=== PATIENT | male | born 1945 | race Caucasian/White ===

== ENCOUNTER → 2017-10-15 12:30 | Outpatient (CLI) | payer MEDICARE, OTHER, SELFPAY ==
[2017-10-15 13:54] LABS: Absolute Lymphocyte Count 1.17 X10^3/ul (0.83-4.51); Absolute Neutrophil Count 4.1 X10^3/uL (2.0-7.7); Basophil# 0.03 X10^3/uL; Basophil% 0.5 % (0-1); Eosinophil# 0.25 X10^3/uL; Eosinophils% 4.2 % (0-5); Hematocrit 43.9 % (40-54); Hemoglobin 14.6 g/dl (13.0-16.5); Lymphocyte # 1.17 X10^3/ul (4.0); Lymphocyte % 19.7 % (19-41); Mean Corp Hgb Conc 33.3 g/gl (32-36); Mean Corpuscular Hgb 28.5 pg (27.0-32.0); Mean Corpuscular Volume 85.6 fL (80-94); Mean Platelet Vol. 9.8 fl (6.2-12.0); Monocyte# 0.38 X10^3/uL; Monocyte% 6.4 % (0-10); Neutrophil # 4.09 X10^3/uL (2.7-7.7); POSITIVE COUNT NO; POSITIVE DIFFERENTIAL NO; POSITIVE MORPHOLOGY NO; Platelet Count 218 K/mm3 (150-450); RBC Distribution Width CV 12.8 % (11.6-14.6); Red Blood Count 5.13 M/mm3 (4.6-6.2); White Blood Count 5.9 K/mm3 (4.4-11.0)
[2017-10-15 14:10] LABS: BNP,B-Type NATRIURETIC PEPTIDE 28.6 pg/mL (0-100)
[2017-10-15 14:12] LABS: AST(SGOT) 19 U/L (15-37); Alanine Aminotransfer ALT/SGPT 28 U/L (16-61); Alkaline Phosphatase 142 U/L (45-117); Anion Gap 10 (5-15); BUN 18 mg/dL (7-18); BUN/Creat Ratio 18.3 RATIO (10-20); Calcium,Total 8.9 mg/dL (8.5-10.1); Chloride 104 mmol/L (98-107); Creatinine, Serum 0.98 mg/dL (0.70-1.30); EST Glomerular Filtration Rate 79 mL/min (>60); Est Glom Filt Rate - Afr Amer 96 mL/min (>60); Globulin 3.9 g/dL (2.2-4.2); Glucose 95 mg/dL (74-106); Potassium 3.7 mmol/L (3.5-5.1); Protein, Total 7.9 g/dL (6.4-8.2); Sodium Level 141 mmol/L (136-145); Thyroid Stim Hormone (TSH) 2.55 uIU/mL (0.358-3.74)
== END ==
PROVIDERS: Family Provider Family Medicine; PCP Family Medicine; Visit Provider Family Medicine
DX: R60.0 Localized edema (principal)
CPT/HCPCS: 36415; 80053; 83880; 84443; 85025

== ENCOUNTER → 2017-10-25 17:16 | Outpatient (CLI) | payer MEDICARE, OTHER, SELFPAY ==
--- NOTE | 2017-10-25 17:20 | CT_ITS ---
STUDY: CT MAXILLOFACIAL SINUSES REASON FOR EXAM: Male, 72 years old. Sinusitis, lump on middle of forehead RADIATION DOSAGE (If Supplied By Facility): CTDIvol = ( 33.06 ) mGy, DLP = ( 895.83 ) mGycm TECHNIQUE: The patient was scanned in a multi detector CT scanner. High resolution axial imaging was performed without the administration of intravenous contrast material. Sagittal and coronal images were reconstructed. Individualized dose optimization techniques were used for this CT. COMPARISON: None. FINDINGS: FRONTAL SINUSES: Bilateral mucosal thickening, left more than right. ETHMOIDAL SINUSES: Diffuse bilateral mucosal thickening. MAXILLARY SINUSES: Bilateral mucosal thickening. SPHENOIDAL SINUSES: Mild mucosal thickening. There is patency of the bilateral maxillary infundibuli with normal uncinate processes, ethmoid bullae, and hiatus semilunaris. Normal bilateral middle turbinates. Normal bilateral inferior turbinates. Normal midline nasal septum. There is patency of the bilateral nasal airways. The visualized osseous structures are normal. The visualized bilateral orbital contents are normal. There is a 9 mm calcified subcutaneous nodule at the midforehead. CT/Sinus/Facial Bone IMPRESSION: Chronic pansinusitis with diffuse mucosal thickening of the paranasal sinuses. Electronically Signed: Dar Tobin DO at 23:35 EDT Tel [phone], Service support ,
== END ==
PROVIDERS: Family Provider Family Medicine; PCP Family Medicine; Visit Provider Otolaryngology
DX: J32.9 Chronic sinusitis, unspecified (principal)
CPT/HCPCS: 70486

== ENCOUNTER → 2017-11-06 08:09 | Outpatient (CLI) | payer MEDICARE, OTHER, SELFPAY ==
[2017-11-06 10:49] LABS: AST(SGOT) 15 U/L (15-37); Alanine Aminotransfer ALT/SGPT 30 U/L (16-61); Albumin, Serum 3.7 g/dL (3.2-5.0); Alkaline Phosphatase 136 U/L (45-117); Bilirubin, Direct 0.23 mg/dL (0.00-0.30); Cholesterol 130 mg/dL (200); Globulin 3.8 g/dL (2.2-4.2); High Density Lipoprotein 38 mg/dL; Protein, Total 7.5 g/dL (6.4-8.2); Triglycerides 153 mg/dL; Very Low Density Lipoprotein 31 mg/dL (5-40)
== END ==
PROVIDERS: Family Provider Family Medicine; PCP Family Medicine; Visit Provider Internal Medicine Cardiovascular Disease
DX: E78.5 Hyperlipidemia, unspecified (principal)
CPT/HCPCS: 36415; 80061; 80076

== ENCOUNTER → 2017-11-07 09:10 | Outpatient (CLI) | payer MEDICARE, OTHER, SELFPAY ==
--- NOTE | 2017-11-07 09:14 | ECHOD_ITS ---
Reason For Study: Pedal Edema Procedure This was a 2D Doppler, Color Flow transthoracic echocardiogram. The exam was of fair technical quality due to body habitus. The study was technically difficult. Exam performed in department. Left Ventricle Normal LV size. Left ventricular systolic function is normal. The estimated ejection fraction is 70 %. There is evidence of diastolic dysfunction. No regional wall motion abnormalities noted. Right Ventricle Normal RV size. Normal systolic function. Atria The left atrium is mildly enlarged. Normal right atrium. No doppler evidence for ASD. Mitral Valve There is no mitral annular calcification. Mobile ecodensity in the submitral valvular apparatus appearing c/w redundant chordae tendonae. Mild (1+) eccentric mitral valve insufficiency. Tricuspid Valve Normal tricuspid valve. Mild tricuspid valve insufficiency. Right ventricular systolic pressure estimated to be 41 mmHg. Aortic Valve Trisinus/trileaflet aortic valve. Normal aortic valve. Pulmonic Valve The pulmonic valve is not well visualized. Great Vessels Normal sized aortic root. Pericardium/Pleural No pericardial effusion. MMode/2D Measurements & Calculations LVIDd: 5.4 cm IVSd: 0.76 cm Ao root diam: 3.9 cm LVIDs: 3.4 cm LVPWd: 0.89 cm LA dimension: 4.1 cm RVDd: 3.9 cm FS: 37.6 % LAV(MOD-bp): 70.2 ml LA A4 area: 21.9 cm2 RA A4 area: 18.0 cm2 LAV(MOD-bp) Indexed: 30.6 ml/m2 LAV(MOD-sp2): 74.4 ml LAV(MOD-sp4): 64.6 ml Time Measurements MV dec time: 0.34 sec Doppler Measurements & Calculations MV E max red: 65.6 cm/sec Lat Peak E' Red: 12.0 cm/sec Med Peak E' Red: 6.2 cm/sec MV A max red: 71.3 cm/sec E/E' lat: 5.4 E/E' med: 10.5 MV E/A: 0.92 MV V2 max: 88.6 cm/sec MV P1/2t max red: 79.0 cm/sec Ao V2 max: 140.7 cm/sec MV max P.1 mmHg MV P1/2t: 79.3 msec Ao max P.9 mmHg MV V2 mean: 46.1 cm/sec MV dec slope: 291.8 cm/sec2 Ao V2 mean: 86.3 cm/sec MV mean P.0 mmHg MVA(P1/2t): 2.8 cm2 Ao mean P.5 mmHg MV V2 VTI: 30.1 cm Ao V2 VTI: 28.5 cm LV V1 max: 121.0 cm/sec PA V2 max: 125.2 cm/sec TR max red: 309.7 cm/sec LV V1 max P.9 mmHg TR max P.4 mmHg LV V1 mean P.8 mmHg LV V1 mean: 76.4 cm/sec LV V1 VTI: 27.6 cm Interpretation Summary The study was technically difficult. Left ventricular systolic function is normal. The estimated ejection fraction is 70 %. The left atrium is mildly enlarged. Mobile ecodensity in the submitral valvular apparatus appearing c/w redundant chordae tendonae. Mild (1+) eccentric mitral valve insufficiency. Mild tricuspid valve insufficiency. Right ventricular systolic pressure estimated to be 41 mmHg. There is evidence of diastolic dysfunction. Ordering Physician: Carolina Mendez Referring Physician: Carolina Mendez Performed By: Zacarias Ospina RCS
== END ==
PROVIDERS: Family Provider Family Medicine; PCP Family Medicine; Visit Provider Family Medicine
DX: I25.10 Atherosclerotic heart disease of native coronary artery without angina pectoris (principal); R60.0 Localized edema
CPT/HCPCS: 93306

== ENCOUNTER 2017-11-19 11:32 | Day surgery (SDC) | payer MEDICARE, OTHER, SELFPAY ==
[2017-11-13 14:07] VITALS: BP 128/74; PULSE 67; RESP 16; TEMP 36.4; O2SAT 96; BMI 32.0
--- NOTE | 2017-11-13 14:31 | SDCEKG_ITS ---
Test Reason : Blood Pressure : / mmHG Vent. Rate : 062 BPM Atrial Rate : 062 BPM P-R Int : 192 ms QRS Dur : 104 ms QT Int : 430 ms P-R-T Axes : 028 -19 011 degrees QTc Int : 436 ms Normal sinus rhythm Normal ECG Confirmed by MARCELINO BEATTY, GALINDO ([id number]), book editor KENROY GALE ([id number]) on 11/15/2017 1:49:01 PM Referred By: Partha Xie Confirmed By:GALINDO BENSON MD
[2017-11-13 15:26] LABS: Anion Gap 7 (5-15); BUN 21 mg/dL (7-18); BUN/Creat Ratio 18.8 RATIO (10-20); Calcium,Total 9.2 mg/dL (8.5-10.1); Chloride 104 mmol/L (98-107); Creatinine, Serum 1.12 mg/dL (0.70-1.30); EST Glomerular Filtration Rate 68 mL/min (>60); Est Glom Filt Rate - Afr Amer 83 mL/min (>60); Estimated Creatinine Clearance 64.47 ml/min; Glucose 111 mg/dL (74-106); Potassium 3.8 mmol/L (3.5-5.1); Sodium Level 138 mmol/L (136-145)
[2017-11-19 11:54] VITALS: BP 132/70; RESP 16; TEMP 36.2; O2SAT 96; BMI 31.9
--- NOTE | 2017-11-19 12:47 | PCM.DC ---
You will use the following diet at home:: No restrictions Your food should be the consistency of: Regular Discharge Activity: Return to Normal Activity Call your doctor if your incision/area has: Increased Pain/ Swelling Allergies/Adverse Reactions: Allergies nifedipine Adverse Reaction (Severe, Verified 11/13/17 13:56) SOB,Dizziness,CP diazepam [From Valium] Adverse Reaction (Verified 11/13/17 13:56) Nausea Medications to take at Discharge Aspirin 325 mg PO DAILY 07/12/16 Atenolol [Tenormin] 25 mg PO BID 07/12/16 Clopidogrel Bisulfate [Plavix] 75 mg PO DAILY 07/12/16 Omeprazole [Prilosec] 40 mg PO DAILY 07/12/16 Tamsulosin HCl [Flomax] 0.4 mg PO DAILY 07/12/16 albuterol sulfate HFA 90 mcg/actuation aerosol inhaler 2 puff INHALATION Q6H PRN 11/04/17 finasteride 5 mg tablet 5 mg PO QDAY 11/04/17 fluticasone 50 mcg/actuation nasal spray,suspension 2 spray INTRANASAL QDAY 11/04/17 multivitamin tablet 1 tab PO QAM 11/04/17 nitroglycerin 0.4 mg sublingual tablet 0.4 mg SUBLINGUAL Q5-15M PRN 11/04/17 fluticasone furoate 100 mcg/actuation blister powder for inhalation 1 inh INHALATION QDAY 11/07/17 Albuterol Aerosols [Ventolin Aerosols] 2.5 mg INHALATION Q6HWA.RT 11/13/17 Amlodipine [Norvasc] 10 mg PO DAILY 11/13/17 Atorvastatin Calcium [Lipitor] 40 mg PO QHS 11/13/17 Furosemide 40 mg PO QDAY 11/13/17 Lisinopril [Zestril] 20 mg PO BID 11/13/17 Triamterene 37.5MG/Hctz 25MG [Maxzide 37.5 mg-25 mg Tablet] 0.5 tab PO QDAY 11/13/17 potassium chloride ER 10 mEq tablet,extended release(part/cryst) 20 meq PO QDAY #180 tab 11/15/17 Acetaminophen/Codeine #3 [Tylenol#3] 1 tab PO Q6H PRN PRN 3 Days #10 tab 11/19/17 Cephalexin [Keflex] 500 mg PO BID #8 cap 11/19/17 The following prescriptions were given: Acetaminophen/Codeine #3 [Tylenol#3] 1 tab PO Q6H PRN PRN 3 Days #10 tab PRN Reason: Pain Cephalexin [Keflex] 500 mg PO BID #8 cap Primary Care Physician: Carolina Mendez MD [Primary Care Provider] - Please Follow Up With: Partha Xie MD When: 1 week
--- NOTE | 2017-11-19 12:48 | PCM.OPRPT ---
Problem List (1) Osteoma of skull Status: Chronic Report of Operation Date of Procedure: 11/19/17 Pre-Operative Diagnosis: frontal osteoma, facial pain Post-Operative Diagnosis: frontal osteoma, facial pain Surgery/Procedure Performed:: excision frontal osteoma Type of Anesthesia:: General Description of Procedure: on the day of the procedure, after appropriate informed consent was obtained, the patient was brought to the operating room and placed in supine position on the operating table. he was placed under general endotracheal anesthesia by the anesthesiologist. the endotracheal tube was secured, the eyes were taped. the frontal area was prepped and draped in sterile fashion. a frontal crease overlying the mass was injected with lidocaine/epinephrine. a 3cm incision was made using a #15 blade through the skin and frontalis muscle. hemostasis was achieved with a bipolar electrocautery. the osteoma was exposed and the periosteum was swept away with a freer. a cutting blade with the saber drill was used to remove the osteoma. a rhett deshaun was used to smooth the area to the level of surrounding bone. the area was irrigated during all drilling. the skin was closed with a combination of 4-0 vicryl and 5-0 prolene. he was extubated by the anesthesiologist and transferred to the PACU in stable condition.
[2017-11-19] MEDS: Mupirocin Ointment 22gm Tube 1 APPLIC (13:25)
[2017-11-19 13:31] VITALS: BP 117/72; BP 132/70; PULSE 72; RESP 16; TEMP 36.1; O2SAT 94
[2017-11-19 13:45] VITALS: BP 116/74; BP 132/70; PULSE 64; RESP 16; O2SAT 96
[2017-11-19 14:00] VITALS: BP 120/77; BP 132/70; PULSE 68; RESP 16; O2SAT 94
[2017-11-19 14:07] VITALS: BP 115/75; BP 132/70; PULSE 60; RESP 16; TEMP 36.1; O2SAT 96
[2017-11-19 14:22] VITALS: BP 132/70
== END 2017-11-19 15:08 | disposition home or self-care (01) ==
LOC: SDC 11:33 → AC 11:34
PROVIDERS: Family Provider Family Medicine; PCP Family Medicine; Visit Provider Otolaryngology
PROC: (CPT 21026; principal; 2017-11-19 12:50)
DX: D16.4 Benign neoplasm of bones of skull and face (principal); R51 Headache; N40.0 Benign prostatic hyperplasia without lower urinary tract symptoms; E78.00 Pure hypercholesterolemia, unspecified; K21.9 Gastro-esophageal reflux disease without esophagitis; Z79.899 Other long term (current) drug therapy; Z79.82 Long term (current) use of aspirin; Z79.02 Long term (current) use of antithrombotics/antiplatelets; I25.10 Atherosclerotic heart disease of native coronary artery without angina pectoris; Z95.5 Presence of coronary angioplasty implant and graft; J45.909 Unspecified asthma, uncomplicated; M41.9 Scoliosis, unspecified
CPT/HCPCS: 00190; 21026; 80048; 93005; J7120

== ENCOUNTER → 2018-05-14 11:21 | Outpatient (CLI) | payer MEDICARE, OTHER, SELFPAY ==
[2018-05-14 14:21] LABS: AST(SGOT) 16 U/L (15-37); Alanine Aminotransfer ALT/SGPT 33 U/L (16-61); Albumin, Serum 3.9 g/dL (3.2-5.0); Alkaline Phosphatase 122 U/L (45-117); Cholesterol 133 mg/dL (200); Globulin 3.8 g/dL (2.2-4.2); High Density Lipoprotein 44 mg/dL; Protein, Total 7.7 g/dL (6.4-8.2); Triglycerides 123 mg/dL; Very Low Density Lipoprotein 25 mg/dL (5-40)
== END ==
PROVIDERS: Family Provider Family Medicine; PCP Family Medicine; Referring Provider Internal Medicine Cardiovascular Disease; Visit Provider Internal Medicine Cardiovascular Disease
DX: E78.5 Hyperlipidemia, unspecified (principal)
CPT/HCPCS: 36415; 80061; 80076

== ENCOUNTER → 2018-11-14 | Outpatient (CLI) | payer MEDICARE, OTHER, SELFPAY ==
[2018-05-16 09:12] VITALS: BMI 32.6
[2018-11-14 10:30] LABS: AST(SGOT) 20 U/L (15-37); Alanine Aminotransfer ALT/SGPT 29 U/L (16-61); Albumin, Serum 3.7 g/dL (3.2-5.0); Alkaline Phosphatase 122 U/L (45-117); Anion Gap 9 (5-15); BUN 19 mg/dL (7-18); BUN/Creat Ratio 17.8 RATIO (10-20); Bilirubin, Direct 0.25 mg/dL (0.00-0.30); Calcium,Total 8.8 mg/dL (8.5-10.1); Chloride 108 mmol/L (98-107); Cholesterol 136 mg/dL (200); Creatinine, Serum 1.07 mg/dL (0.70-1.30); EST Glomerular Filtration Rate 72 mL/min (>60); Est Glom Filt Rate - Afr Amer 87 mL/min (>60); Globulin 3.3 g/dL (2.2-4.2); Glucose 95 mg/dL (74-106); High Density Lipoprotein 38 mg/dL; PSA,Total - Annual Screen 2.78 ng/mL (0.00-4.00); Potassium 3.8 mmol/L (3.5-5.1); Sodium Level 144 mmol/L (136-145); Triglycerides 240 mg/dL; Very Low Density Lipoprotein 48 mg/dL (5-40)
== END | disposition home or self-care (01) ==
LOC: MTLAB 07:05
PROVIDERS: Internal Medicine Cardiovascular Disease; Family Provider Family Medicine; PCP Family Medicine; Referring Provider Urology; Visit Provider Urology
DX: I51.9 Heart disease, unspecified (principal); E78.5 Hyperlipidemia, unspecified; Z12.5 Encounter for screening for malignant neoplasm of prostate
CPT/HCPCS: 80048; 80061; 80076; 84153; G0103

== ENCOUNTER → 2019-09-10 10:23 | Outpatient (CLI) | payer MEDICARE, OTHER, SELFPAY ==
[2019-05-14 11:23] VITALS: BMI 33.9
[2019-09-10 13:04] LABS: AST(SGOT) 19 U/L (15-37); Alanine Aminotransfer ALT/SGPT 32 U/L (16-61); Albumin, Serum 3.9 g/dL (3.2-5.0); Alkaline Phosphatase 111 U/L (45-117); Bilirubin, Direct 0.22 mg/dL (0.00-0.30); Cholesterol 137 mg/dL (200); Globulin 3.8 g/dL (2.2-4.2); High Density Lipoprotein 40 mg/dL; Protein, Total 7.7 g/dL (6.4-8.2); Triglycerides 163 mg/dL; Very Low Density Lipoprotein 33 mg/dL (5-40)
== END ==
PROVIDERS: PCP Family Medicine; Referring Provider Internal Medicine Cardiovascular Disease; Visit Provider Internal Medicine Cardiovascular Disease
DX: E78.5 Hyperlipidemia, unspecified (principal)
CPT/HCPCS: 36415; 80061; 80076

== ENCOUNTER → 2020-03-31 | Outpatient (CLI) | payer MEDICARE, OTHER, SELFPAY ==
[2020-01-04 15:43] VITALS: BMI 18.4
== END | disposition home or self-care (01) ==
LOC: LABSPEC 12:16
PROVIDERS: PCP Family Medicine; Referring Provider Internal Medicine Pulmonary Disease; Visit Provider Internal Medicine Pulmonary Disease
DX: R05 Cough (principal)
CPT/HCPCS: 87070; 87205

== ENCOUNTER → 2020-04-19 11:15 | Outpatient (CLI) | payer MEDICARE, OTHER, SELFPAY ==
[2020-01-04 15:43] VITALS: BMI 18.4
[2020-04-19 15:30] LABS: BNP,B-Type NATRIURETIC PEPTIDE 43.6 pg/mL (0-100)
== END ==
PROVIDERS: PCP Family Medicine; Referring Provider Internal Medicine Pulmonary Disease; Visit Provider Internal Medicine Pulmonary Disease
DX: R06.00 Dyspnea, unspecified (principal); R60.0 Localized edema
CPT/HCPCS: 36415; 83880

== ENCOUNTER → 2020-05-02 13:43 | Outpatient (CLI) | payer MEDICARE, OTHER, SELFPAY ==
[2020-01-04 15:43] VITALS: BMI 18.4
--- NOTE | 2020-05-02 13:45 | ECHOD_ITS ---
Reason For Study: PHTN Procedure This was a 2D Doppler, Color Flow transthoracic echocardiogram. Exam performed in department. Left Ventricle Normal LV size. Left ventricular systolic function is normal. The estimated ejection fraction is 65 %. Stage 1 diastolic dysfunction. No regional wall motion abnormalities noted. Right Ventricle Normal RV size. Normal systolic function. Atria Normal left atrium. Normal right atrium. Mitral Valve Normal mitral valve. Tricuspid Valve Normal tricuspid valve. Mild (1+) tricuspid valve insufficiency. Pulmonary artery systolic pressure is 38 mmHg. Aortic Valve Normal aortic valve. Trisinus/trileaflet aortic valve. Pulmonic Valve Normal pulmonic valve. Great Vessels Normal aortic root. The pulmonary artery is normal size. Normal inferior vena cava. Pericardium/Pleural No pericardial effusion. MMode/2D Measurements & Calculations LVIDd: 5.0 cm IVSd: 0.73 cm Ao root diam: 4.1 cm LVIDs: 3.5 cm LVPWd: 0.73 cm RVDd: 3.7 cm FS: 30.2 % LAV(MOD-bp): 56.5 ml LA A4 area: 19.5 cm2 LA dimension(2D): 4.3 cm LAV(MOD-bp) Indexed: 24.7 ml/m2 LAV(MOD-sp2): 57.1 ml LAV(MOD-sp4): 52.5 ml RA A4 area: 15.3 cm2 Time Measurements MV dec time: 0.23 sec Doppler Measurements & Calculations MV E max red: 58.6 cm/sec Lat Peak E' Red: 12.5 cm/sec Med Peak E' Red: 6.0 cm/sec MV A max red: 80.8 cm/sec E/E' lat: 4.7 E/E' med: 9.7 MV E/A: 0.72 Ao V2 max: 151.5 cm/sec LV V1 max: 132.0 cm/sec PA V2 max: 102.9 cm/sec Ao max P.2 mmHg LV V1 max P.0 mmHg TR max red: 294.5 cm/sec TR max P.7 mmHg Interpretation Summary Normal LV size. Left ventricular systolic function is normal. The estimated ejection fraction is 65 %. Stage 1 diastolic dysfunction. Pulmonary artery systolic pressure is 38 mmHg. Ordering Physician: Trace Pa Referring Physician: ORLANDO CORTEZ Performed By: Mayi Lechuga, MARYA, RVT
== END ==
PROVIDERS: PCP Family Medicine; Referring Provider Internal Medicine Pulmonary Disease; Visit Provider Internal Medicine Pulmonary Disease
DX: I27.20 Pulmonary hypertension, unspecified (principal)
CPT/HCPCS: 93306

== ENCOUNTER 2020-09-01 14:57 | Outpatient (RCR) | payer MEDICARE, OTHER, SELFPAY ==
[2020-07-04 12:59] VITALS: BMI 32.6
[2020-09-01] MEDS: COVID-19 VACC, MRNA(PFIZER)/PF 30 MCG/0.3 ML SYRINGE IM (09:53)
[2020-09-22] MEDS: COVID-19 VACC, MRNA(PFIZER)/PF 30 MCG/0.3 ML SYRINGE IM (09:27)
== END 2020-09-01 23:59 ==
LOC: IMMUN 14:57
PROVIDERS: PCP Family Medicine; Visit Provider Family Medicine
DX: Z23 Encounter for immunization (principal)
CPT/HCPCS: 0001A; 0002A

== ENCOUNTER → 2020-09-13 10:30 | Outpatient (CLI) | payer MEDICARE, OTHER, SELFPAY ==
[2020-07-04 12:59] VITALS: BMI 32.6
[2020-09-13 13:16] LABS: AST(SGOT) 15 U/L (15-37); Alanine Aminotransfer ALT/SGPT 30 U/L (16-61); Alkaline Phosphatase 119 U/L (45-117); Bilirubin, Direct 0.28 mg/dL (0.00-0.30); Cholesterol 143 mg/dL (200); Globulin 3.7 g/dL (2.2-4.2); High Density Lipoprotein 47 mg/dL; Protein, Total 7.7 g/dL (6.4-8.2); Triglycerides 151 mg/dL; Very Low Density Lipoprotein 30 mg/dL (5-40)
[2020-09-13 13:30] LABS: PSA,Total- Diagnostic 2.36 ng/mL (0.0-4.0)
== END ==
PROVIDERS: Nurse Practitioner Family; PCP Family Medicine; Referring Provider Urology; Visit Provider Urology
DX: E78.00 Pure hypercholesterolemia, unspecified (principal); E78.5 Hyperlipidemia, unspecified; R97.20 Elevated prostate specific antigen [PSA]
CPT/HCPCS: 36415; 80061; 80076; 84153

== ENCOUNTER 2021-10-22 14:48 | Emergency (ER) | payer MEDICARE, OTHER, SELFPAY ==
[2021-10-22] VITALS (7 sets, daily range): BP systolic 108–134; BP diastolic 53–71; PULSE 51–62; RESP 16–21; TEMP 36.4–36.5; O2SAT 95–97; BMI 32.9
--- NOTE | 2021-10-22 15:17 | RAD_ITS ---
STUDY: X-RAY CHEST REASON FOR EXAM: Male, 76 years old. chest pain TECHNIQUE: Single frontal view of the chest. COMPARISON: CT chest 07/24/2016 and chest x-ray 07/12/2016 FINDINGS: The lungs are clear and expanded. There is no demonstrated pleural abnormality. Normal size heart. Normal mediastinum and carol. Normal visualized pulmonary arteries. Normal visualized aortic arch and descending thoracic aorta. Normal visualized thoracic spine. Normal visualized ribs, clavicles, and shoulders. There is no demonstrated abnormality of the visualized soft tissue structures of the upper abdomen. RAD/Chest 1 View (Portable) IMPRESSION: Normal x-ray examination of the chest. Electronically Signed: Jaciel Cole MD at 17:50 EDT ,
--- NOTE | 2021-10-22 15:17 | EKG12_ITS ---
Test Reason : CHEST PAIN Blood Pressure : / mmHG Vent. Rate : 055 BPM Atrial Rate : 055 BPM P-R Int : 136 ms QRS Dur : 104 ms QT Int : 462 ms P-R-T Axes : 008 -18 015 degrees QTc Int : 441 ms Sinus bradycardia Otherwise normal ECG Confirmed by SAMIR BEATTY, BLANCO ([id number]), script editor MAYI TIPTON ([id number]) on 10/24/2021 11:13:35 AM Referred By: KEKE Confirmed By:BLANCO DAWSON MD
--- NOTE | 2021-10-22 15:17 | ED.VIS.CHEST ---
HPI History of Present Illness Chief Complaint: Chest Pain Informant: patient and EMS Onset/Context/Timing Onset: Today (JPTA, see below) Activity at onset: gradual Narrative Narrative: Patient is a just prior to arrival, he was sitting at his desk on the computer and he had a very relatively brief pain in his right mid chest without radiation or other associated symptoms. It went away pretty quickly. He got up and went to the kitchen and about 10 minutes later, he was in the kitchen, he had taken something out of the oven and went to sit down and then suddenly started feeling dizzy, sort of like there was a sensation of movement he had some visual disturbance like tunnel vision, he felt a little lightheaded but not near syncopal and did not lose consciousness. He became very sweaty. He denies any earache or tinnitus. No recent illness or [id number] medications. He states with these symptoms, not the chest discomfort, he took 2 nitroglycerin and he states the symptoms ended up going away and now he feels fine. He presents by EMS for this episode which was separate from the brief right-sided chest pain, and he had no further chest discomfort after this including during this episode. [facility] Medical History (Updated 10/22/21 @ 18:[address] Ronald Zhou MD) Asthma Atherosclerotic heart disease of [place] coronary artery without angina pectoris Essential hypertension Hyperlipidemia Hypertension Long-term use of high-risk medication Sinus bradycardia Home Medications aspirin 325 mg PO DAILY 07/12/16 [History Last Taken 11/12/17] tamsulosin 0.4 mg PO DAILY 07/12/16 [History Last Taken 11/18/17] albuterol sulfate 90 mcg/actuation aerosol inhaler 2 puff INHALATION Q6H PRN 11/04/17 [History Last Taken Unknown] finasteride 5 mg tablet 5 mg PO QDAY 11/04/17 [History Last Taken 11/18/17] fluticasone propionate 50 mcg/actuation nasal spray,suspension 2 spray INTRANASAL QDAY 11/04/17 [History Last Taken 11/19/17 0730] multivitamin 1 tab PO QAM 11/04/17 [History Last Taken 11/18/17] fluticasone furoate 100 mcg/actuation blister powder for inhalation 1 inh INHALATION QDAY 11/07/17 [History Last Taken 11/19/17 0730] albuterol sulfate 2.5 mg INHALATION Q6HWA.RT 11/13/17 [History Last Taken 11/18/17] nitroglycerin 0.4 mg sublingual tablet 0.4 mg SUBLINGUAL Q5-15M PRN #75 tab 06/17/20 [Rx Last Taken Unknown] omeprazole 40 mg capsule,delayed release See Rx Instructions .ROUTE .COMPLEX #90 cap 12/07/20 [Rx Last Taken Unknown] atorvastatin 40 mg tablet 40 mg PO QHS #90 tab 01/12/21 [Rx Last Taken Unknown] potassium chloride 10 mEq tablet,extended release(part/cryst) 20 meq PO DAILY #180 tab 03/08/21 [Rx Last Taken Unknown] clopidogrel 75 mg tablet 75 mg PO DAILY #90 tab 03/17/21 [Rx Last Taken Unknown] furosemide 40 mg tablet 40 mg PO QDAY PRN #90 tab 05/31/21 [Rx Last Taken Unknown] triamterene 37.5 mg-hydrochlorothiazide 25 mg tablet See Rx Instructions .ROUTE .COMPLEX #45 tab 05/31/21 [Rx Last Taken Unknown] atenolol 25 mg tablet 25 mg PO BID #180 tab 09/11/21 [Rx Last Taken Unknown] amlodipine 10 mg tablet 10 mg PO DAILY #90 tab 10/16/21 [Rx Last Taken Unknown] lisinopril 20 mg tablet 20 mg PO BID #180 tab 10/16/21 [Rx Last Taken Unknown] Allergy/AdvReac Type Severity Reaction Status Date / Time nifedipine AdvReac Severe SOB,Dizzine Verified 05/31/21 14:53 ss,CP diazepam [From Valium] AdvReac Nausea Verified 05/31/21 14:53 Family History Father CHF (congestive heart failure) Brother CAD (coronary artery disease) Hx of CABG Surgical History 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 Postsurgical percutaneous transluminal coronary angioplasty (PTCA) status Presence of stent in coronary artery (~09/2006) Social History Smoking Status: Former smoker alcohol intake: current details: occasional ROS ROS ED Constitutional Constitutional ED: Reports sweats; Denies chills or fever(s) Eyes Eyes: Denies change in vision or diplopia ENT ENT ED: Denies rhinorrhea or sore throat Cardiovascular Cardiovascular: Reports as per HPI and chest pain; Denies palpitations Respiratory/Chest Respiratory/Chest: Denies cough or dyspnea Gastrointestinal Gastrointestinal: Denies abdominal pain, diarrhea, nausea or vomiting Genitourinary Genitourinary ED: Denies dysuria or hematuria Musculoskeletal Musculoskeletal: Denies back pain or neck pain Integumentary Denies abscess or rash Neurologic Neurologic: Reports dizziness; Denies headache(s), paresthesias or weakness Psychiatric Psychiatric: Denies anxiety or suicidal thoughts EXAM Physical Exam Const Vital Signs: 10/22/21 14:52 10/22/21 14:59 10/22/21 15:00 Temperature 97.5 F L Temperature Source Oral Pulse Rate 56 L 61 Pulse Rate [Lying] Pulse Rate [Sitting (for 1 minute prior to obtaining)] Respiratory Rate 21 H 16 Respiratory Effort Normal Blood Pressure 108/60 109/54 L Blood Pressure [Lying] Blood Pressure [Sitting (for 1 minute prior to obtaining)] Blood Pressure [Standing (for 1 minute prior to obtaining)] Blood Pressure Mean 76 72 Blood Pressure Mean [Lying] Blood Pressure Mean [Sitting (for 1 minute prior to obtaining)] Blood Pressure Mean [Standing (for 1 minute prior to obtaining)] Pulse Ox 95 95 Oxygen Delivery Method Room Air Room Air 10/22/21 15:25 10/22/21 15:34 10/22/21 16:00 Temperature Temperature Source Pulse Rate 61 Pulse Rate [Lying] 52 L Pulse Rate [Sitting (for 1 minute prior to obtaining)] 62 Respiratory Rate 18 Respiratory Effort Blood Pressure 109/54 L Blood Pressure [Lying] 117/53 L Blood Pressure [Sitting (for 1 minute prior to obtaining)] 133/70 H Blood Pressure [Standing (for 1 minute prior to obtaining)] 129/70 H Blood Pressure Mean 72 Blood Pressure Mean [Lying] 74 Blood Pressure Mean [Sitting (for 1 minute prior to obtaining)] 91 Blood Pressure Mean [Standing (for 1 minute prior to obtaining)] 89 Pulse Ox 97 Oxygen Delivery Method Room Air Room Air 10/22/21 17:41 10/22/21 18:05 Temperature 97.7 F L Temperature Source Oral Pulse Rate 55 L 51 L Pulse Rate [Lying] Pulse Rate [Sitting (for 1 minute prior to obtaining)] Respiratory Rate 18 20 H Respiratory Effort Blood Pressure 118/61 134/61 H Blood Pressure [Lying] Blood Pressure [Sitting (for 1 minute prior to obtaining)] Blood Pressure [Standing (for 1 minute prior to obtaining)] Blood Pressure Mean 80 85 Blood Pressure Mean [Lying] Blood Pressure Mean [Sitting (for 1 minute prior to obtaining)] Blood Pressure Mean [Standing (for 1 minute prior to obtaining)] Pulse Ox 96 96 Oxygen Delivery Method Room Air Room Air Positive well nourished and well developed Constitutional Narrative: Well-appearing and pleasant General Appearance ED: well developed and NAD HEENT Reports moist mucous membranes normocephalic and atraumatic Eyes PERRL and EOMs intact bilaterally Neck full ROM and supple Resp normal respiratory effort and clear to auscultation bilaterally Effort and Inspection: able to speak in complete sentences Cardio regular rate, regular rhythm and no murmurs Cardio Narrative: Borderline bradycardia GI non-tender and non-distended Auscultation: normoactive bowel sounds Palpation: soft Back/Spine no CVA tenderness General Back: other FROM Extremity normal to inspection General Extremety ED: Negative for edema, pulses abnormal or tenderness General Extremity: Negative for edema or pulses abnormal Neuro oriented x3, CN's II-XII intact bilaterally and no sensory deficits noted Sensorium / Orientation: awake and alert Motor Exam: strength 5/5 throughout Skin no rashes or lesions noted and no wounds MDM MDM MDM Narrative Medical decision making narrative: Did a Cale-Hallpike maneuver to both sides, it is negative without any recurrence of symptoms. His blood pressure is 108/60, later was 134/61. He had no recurrence of symptoms even with walking. I do not think this is central vertigo/stroke given all of this, especially since it lasted for short period of time. Labs unremarkable except for low potassium. His initial troponin is negative and his EKG is normal and he had no further symptoms while in the emergency department being monitored. While we were waiting to do the second troponin level, which ended up coming back at the exact same levels initial 1 at 6 for a delta of 0, we gave him 10 mEq of IV potassium. He states last night he was having leg cramping, this certainly could have been related to low potassium levels. At this point I will discharge him for close a patient follow-up. The chest discomfort he was having was brief and possibly related versus unrelated to the episode that he had 10 minutes later, he did not relieve any chest discomfort with nitroglycerin and the actual discomfort he had was fairly atypical and there is no evidence of acute coronary syndrome at this time. We discussed reasons to return he is comfortable with that plan. Lab Data Attestation: I reviewed the patient's lab results. Labs: Laboratory Results - last 24 hr 10/22/21 10/22/21 10/22/21 15:08 15:08 15:08 WBC 6.9 RBC 4.63 Hgb 13.9 Hct 40.8 MCV 88.1 MCH 30.0 MCHC 34.1 RDW Std Deviation 42.2 RDW Coeff of Shereen 13.2 Plt Count 176 MPV 10.4 Immature Gran % (Auto) 0.400 Neut % (Auto) 69.3 Lymph % (Auto) 17.2 L Dukes % (Auto) 7.2 Eos % (Auto) 5.5 H Baso % (Auto) 0.4 Absolute Neuts (auto) 4.8 Absolute Lymphs (auto) 1.19 Nucleated RBC % 0 Sodium 140 Potassium 3.3 L Chloride 107 Carbon Dioxide 27.0 Anion Gap 6 BUN 24 H Creatinine 1.27 Estim Creat Clear Calc 53.46 Est GFR (MDRD) Af Amer 71 Est GFR (MDRD) Non-Af 58 L BUN/Creatinine Ratio 18.9 Glucose 127 H Calcium 9.2 Troponin I High Sens 6 10/22/21 17:18 WBC RBC Hgb Hct MCV MCH MCHC RDW Std Deviation RDW Coeff of Shereen Plt Count MPV Immature Gran % (Auto) Neut % (Auto) Lymph % (Auto) Dukes % (Auto) Eos % (Auto) Baso % (Auto) Absolute Neuts (auto) Absolute Lymphs (auto) Nucleated RBC % Sodium Potassium Chloride Carbon Dioxide Anion Gap BUN Creatinine Estim Creat Clear Calc Est GFR (MDRD) Af Amer Est GFR (MDRD) Non-Af BUN/Creatinine Ratio Glucose Calcium Troponin I High Sens 6 Radiography Chest X-Ray - ED: 1 View, Read by ED Physician, Normal and No Acute Disease Diagnostic Testing: Clinical Impression(s) from Imaging Studies Chest X-Ray 10/22/21 15:17 IMPRESSION: Normal x-ray examination of the chest. Electronically Signed: Jaciel Cole MD at 17:50 EDT Reading Location ID and State: [facility] / [place] , Service support , EKG Initial EKG: Attestation: I personally reviewed and interpreted this EKG as follows: Interpretation: No Acute Injury Pattern and Sinus Bradycardia (At 55. Otherwise normal EKG.) Discharge Plan Triage Chief Complaint: Chest Pain ED Provider: Ronald Zhou Dx/Rx/DC Orders Clinical Impression: Atypical chest pain, Nonspecific dizziness, Diaphoresis, Hypokalemia Instructions: ED Chest Pain, Uncertain Cause, ED Dizziness, Uncertain Cause Prescriptions: No Action fluticasone furoate [Arnuity Ellipta] 100 mcg/actuation blister with device 1 inh INHALATION QDAY RF: 0 albuterol sulfate 90 mcg/actuation HFA aerosol inhaler 2 puff INHALATION Q6H PRN (Reason: Wheezing) RF: 0 finasteride 5 mg tablet 5 mg PO QDAY RF: 0 multivitamin tablet 1 tab PO QAM RF: 0 fluticasone propionate [Allergy Relief (fluticasone)] 50 mcg/actuation spray,suspension 2 spray INTRANASAL QDAY RF: 0 triamterene-hydrochlorothiazid 37.5-25 mg tablet See Rx Instructions .ROUTE .COMPLEX Qty: 45 RF: 3 furosemide 40 mg tablet 40 mg PO QDAY PRN (Reason: WATER PILL) Qty: 90 RF: 3 aspirin 325 MG tablet 325 mg PO DAILY RF: 0 tamsulosin 0.4 MG capsule 0.4 mg PO DAILY RF: 0 albuterol sulfate 2.5 MG/3 ML solution for nebulization 2.5 mg inhalation Q6HWA.RT RF: 0 nitroglycerin 0.4 mg tablet, sublingual 0.4 mg SUBLINGUAL Q5-15M PRN (Reason: CHEST PAIN) Qty: 75 RF: 3 omeprazole 40 mg capsule,delayed release(DR/EC) See Rx Instructions .ROUTE .COMPLEX Qty: 90 RF: 3 atorvastatin 40 mg tablet 40 mg PO QHS Qty: 90 RF: 3 potassium chloride [Klor-Con M10] 10 mEq tablet,ER particles/crystals 20 meq PO DAILY Qty: 180 RF: 3 clopidogrel 75 mg tablet 75 mg PO DAILY Qty: 90 RF: 3 atenolol 25 mg tablet 25 mg PO BID Qty: 180 RF: 3 amlodipine 10 mg tablet 10 mg PO DAILY Qty: 90 RF: 3 lisinopril 20 mg tablet 20 mg PO BID Qty: 180 RF: 3 Primary Care Provider: Carolina Mendez Referrals: Carolina Mendez MD [Primary Care Provider] - (this week -- call for appt) Disposition Disposition: Home, Self Care
[2021-10-22 15:39] LABS: Absolute Lymphocyte Count 1.19 X10^3/uL (0.83-4.51); Absolute Neutrophil Count 4.8 X10^3/uL (2.0-7.7); Basophil# 0.03 X10^3/uL; Basophil% 0.4 % (0-1); Eosinophil# 0.38 X10^3/uL; Eosinophils% 5.5 % (0-5); Hematocrit 40.8 % (40-54); Hemoglobin 13.9 g/dL (13.0-16.5); Lymphocyte # 1.19 X10^3/ul (0.83-4.51); Lymphocyte % 17.2 % (19-41); Mean Corp Hgb Conc 34.1 g/dL (32-36); Mean Corpuscular Volume 88.1 fL (80-94); Mean Platelet Vol. 10.4 fl (6.2-12.0); Monocyte% 7.2 % (0-10); NRBC Flagged by Analyzer 0 % (0-5); Neutrophil # 4.78 X10^3/uL (2.7-7.7); Neutrophil % 69.3 % (47-70); Platelet Count 176 K/mm3 (150-450); RBC Distribution Width CV 13.2 % (11.6-14.6); RBC Distribution Width SD 42.2 fl (35.1-43.9); Red Blood Count 4.63 M/mm3 (4.6-6.2); White Blood Count 6.9 K/mm3 (4.4-11.0)
[2021-10-22 15:49] LABS: Anion Gap 6 (5-15); BUN 24 mg/dL (7-18); BUN/Creat Ratio 18.9 RATIO (10-20); Calcium,Total 9.2 mg/dL (8.5-10.1); Chloride 107 mmol/L (98-107); Creatinine, Serum 1.27 mg/dL (0.70-1.30); EST Glomerular Filtration Rate 58 mL/min (>60); Est Glom Filt Rate - Afr Amer 71 mL/min (>60); Estimated Creatinine Clearance 53.46 ml/min; Glucose 127 mg/dL (74-106); Potassium 3.3 mmol/L (3.5-5.1); Sodium Level 140 mmol/L (136-145)
[2021-10-22 16:16] LABS: Troponin-I HS (w/2H Reflex) 6 pg/mL (3.0-78.0)
[2021-10-22] MEDS: Potassium Chloride 10mEq/100mL 10 MEQ/100 ML IV.SOLN. 100 MEQ IV BOLUS (16:25)
[2021-10-22 17:44] LABS: Troponin-I HS 6 pg/mL (3.0-78.0)
[2021-10-22 17:55] LABS: Reflex Troponin-HS? (from REC) Y
== END 2021-10-22 18:40 | disposition home or self-care (01) ==
PROVIDERS: Emergency Provider Emergency Medicine; PCP Family Medicine; Visit Provider Emergency Medicine
DX: R07.89 Other chest pain (principal); R42 Dizziness and giddiness; R61 Generalized hyperhidrosis; E87.6 Hypokalemia; I25.10 Atherosclerotic heart disease of native coronary artery without angina pectoris; E78.5 Hyperlipidemia, unspecified; I10 Essential (primary) hypertension; Z87.891 Personal history of nicotine dependence; J45.909 Unspecified asthma, uncomplicated; Z79.82 Long term (current) use of aspirin; Z79.899 Other long term (current) drug therapy; Z95.5 Presence of coronary angioplasty implant and graft
CPT/HCPCS: 71045; 80048; 84484; 85025; 93005; 96365; 99285; A4216

== ENCOUNTER → 2021-10-27 | Outpatient (CLI) | payer MEDICARE, OTHER, SELFPAY ==
[2021-10-27 12:28] LABS: AST(SGOT) 16 U/L (15-37); Alanine Aminotransfer ALT/SGPT 32 U/L (16-61); Albumin, Serum 3.8 g/dL (3.2-5.0); Alkaline Phosphatase 88 U/L (45-117); Anion Gap 4 (5-15); BUN 17 mg/dL (7-18); BUN/Creat Ratio 14.5 RATIO (10-20); Bilirubin, Direct 0.28 mg/dL (0.00-0.30); Calcium,Total 8.6 mg/dL (8.5-10.1); Chloride 106 mmol/L (98-107); Cholesterol 132 mg/dL (200); Creatinine, Serum 1.17 mg/dL (0.70-1.30); EST Glomerular Filtration Rate 64 mL/min (>60); Est Glom Filt Rate - Afr Amer 78 mL/min (>60); Globulin 3.1 g/dL (2.2-4.2); Glucose 105 mg/dL (74-106); High Density Lipoprotein 41 mg/dL; PSA,Total- Diagnostic 2.06 ng/mL (0.0-4.0); Potassium 3.7 mmol/L (3.5-5.1); Protein, Total 6.9 g/dL (6.4-8.2); Sodium Level 138 mmol/L (136-145); Triglycerides 159 mg/dL; Very Low Density Lipoprotein 32 mg/dL (5-40)
== END | disposition home or self-care (01) ==
LOC: MTLAB 09:49
PROVIDERS: PCP Family Medicine; Referring Provider Nurse Practitioner Gerontology; Visit Provider Nurse Practitioner Gerontology
DX: E78.5 Hyperlipidemia, unspecified (principal); Z12.5 Encounter for screening for malignant neoplasm of prostate; E87.6 Hypokalemia
CPT/HCPCS: 36415; 80048; 80061; 80076; 84153

== ENCOUNTER → 2021-11-16 | Outpatient (CLI) | payer MEDICARE, OTHER, SELFPAY ==
--- NOTE | 2021-11-16 11:00 | STRESSREP ---
Stress Test Report Date: 11-16-2021 Procedure: Exercise tolerance test/imaging study Indications: Shortness of breath; palpitations; CAD; PCI Consent: Per the patient Procedure: The patient exercised on a Vinay protocol for 4 minutes completing Stage I and 1 minute of Stage II achieving a peak heart rate of 126 bpm (88% predicted maximal heart rate) with a peak blood pressure 172/70 mmHg and a peak MET capacity of 7 METs. The baseline ECG demonstrated normal sinus rhythm. The peak exercise ECG demonstrated no obvious ECG changes. There was an occasional PVC during exercise and recovery and an isolated ventricular couplet during exercise. The functional capacity was considered average. There was no complaint of chest discomfort during exercise or recovery. The examination was discontinued secondary to dyspnea. Impression: 1. Technically adequate (percent predicted maximal heart rate greater than 85%) exercise tolerance test 2. Peak exercise ECG with no obvious ECG changes 3. There was an occasional PVC during exercise and recovery and an isolated ventricular couplet during exercise 4. Nuclear images pending Myocardial perfusion imaging study: Technique: The patient was injected with 14.9 mCi of technetium 99m Cardiolite and subsequently rest SPECT Cardiolite nuclear imaging was obtained in the horizontal long, vertical long, and short axis views. The patient exercised on a Vinay protocol for 4 minutes completing Stage I and 1 minute of Stage II achieving a peak heart rate of 126 bpm (88% predicted maximal heart rate) with a peak blood pressure 172/70 mmHg and a peak MET capacity of 7 METs. The patient was injected with 44.7 mCi of technetium 99m Cardiolite and subsequently stress SPECT Cardiolite nuclear imaging was obtained in the horizontal long, vertical long, and short axis views. A gated Cardiolite study at peak stress was obtained. Interpretation: Rest and stress SPECT Cardiolite nuclear imaging status post realignment and normalization demonstrates body motion during image acquisition and extracardiac/gastrointestinal tracer uptake near the inferior segments and otherwise relative uniform tracer uptake and myocardial perfusion appearing within normal limits. There is end systolic thickening and brightening. The gated Cardiolite study demonstrates myocardial thickening and inward wall motion. The reported LVEF is 75%. Impression: 1. Rest and stress SPECT Cardiolite nuclear imaging demonstrate findings compatible with body motion during image acquisition, extracardiac/gastrointestinal tracer uptake near the inferior segments, and otherwise relative uniform tracer uptake and myocardial perfusion appearing within normal limits. 2. The gated Cardiolite study reports an LVEF of 75%. This note was generated with [employer] software. It may contain incorrect words, spelling, and punctuation that were not noted in checking the note before signing.
== END | disposition home or self-care (01) ==
LOC: CVS 06:36
PROVIDERS: PCP Family Medicine; Referring Provider Nurse Practitioner Gerontology; Visit Provider Nurse Practitioner Gerontology
DX: I25.10 Atherosclerotic heart disease of native coronary artery without angina pectoris (principal)
CPT/HCPCS: 78452; 93017; A9500; A4216

== ENCOUNTER 2022-05-04 09:22 | Emergency (ER) | payer MEDICARE, OTHER, SELFPAY ==
[2022-05-04 09:23] VITALS: BP 141/77; PULSE 60; RESP 18; TEMP 36.1; O2SAT 96; BMI 32.1
--- NOTE | 2022-05-04 09:41 | CT_ITS ---
STUDY: CT ABDOMEN AND PELVIS WITHOUT CONTRAST REASON FOR EXAM: Male, 77 years old. Right flank pain. RADIATION DOSAGE (If Supplied By Facility): CTDIvol = ( 15.95 ) mGy, DLP = ( 853.46 ) mGycm TECHNIQUE: Transaxial images were obtained from the dome of the diaphragm to the symphysis pubis without oral contrast, and without intravenous contrast. Sagittal and coronal images were reconstructed. Individualized dose optimization techniques were used for this CT. COMPARISON: None. FINDINGS: Bibasilar pulmonary infiltrates worse on the right side. Coronary artery calcification. Normal liver. Thin wires are seen entering the right anterior abdominal wall with the tip surrounding the mid central portion of the liver. There are multiple small gallstones. Normal spleen. Normal pancreas. Normal bilateral adrenal glands. Normal right kidney. Normal left kidney. Normal visualized stomach. Normal small intestine. Normal colon. The appendix is visualized and appears normal. There is diffuse atherosclerotic calcification of the abdominal aorta and its major visceral branches, without a demonstrated aneurysm. Normal inferior vena cava. There is borderline retroperitoneal lymphadenopathy with enlarged nodes no greater than 10mm in the short axis diameter. Normal urinary bladder. There is enlargement of the prostate gland. It measures 6.1 cm x 6.5 cm. This causes indentation at the bladder base. Central prostatic calcifications are seen. Metallic radiation seeds are seen within the prostate as well. There is a small umbilical hernia containing fat. The neck of the hernia measures 2.8 cm. Small left inguinal hernia containing fat. There are diffuse degenerative changes of the visualized lumbar spine. Anterolisthesis of L4 on L5 due to facet joint osteoarthritis and hypertrophy. CT/Abdomen/Pelvis without Cont IMPRESSION: Bibasilar pulmonary infiltrates worse on the right side. Prostatic enlargement with indentation of the bladder base. Radiation seeds are seen within the prostate. Umbilical hernia containing fat. The neck of hernia measures 2.8 cm. Small left inguinal hernia containing fat. Multiple small gallstones. Electronically Signed: Kurt Sibley MD at 10:26 EDT ,
--- NOTE | 2022-05-04 09:42 | EX.ED.DYSGE1 ---
HPI History of Present Illness Chief Complaint: Flank Pain Informant: patient Onset/Context/Timing Onset: Yesterday Context: Gradual Onset Timing: Waxes and wanes Current Severity: Moderate Maximum Severity: Moderate Narrative Narrative: Patient present secondary to right flank pain. He has a history of kidney stone approximately 30 years ago. He states pain is mostly in his back with some wrapping around to the anterior abdomen. Has had some intermittent nausea. No difficulty urinating or obvious hematuria. [facility] Medical History (Updated 05/04/22 @ 11:[address] Allyson Velazquez MD) Asthma Atherosclerotic heart disease of [place] coronary artery without angina pectoris Essential hypertension Hyperlipidemia Hypertension Long-term use of high-risk medication Sinus bradycardia Home Medications aspirin 325 mg tablet 325 mg PO DAILY HEART 07/12/16 [History Last Taken 11/12/17] tamsulosin 0.4 mg capsule 0.4 mg PO DAILY URINE 07/12/16 [History Last Taken 11/18/17] albuterol sulfate 90 mcg/actuation aerosol inhaler 2 puff inhalation Q6H PRN Wheezing 11/04/17 [History Last Taken Unknown] finasteride 5 mg tablet 5 mg PO QDAY PROSTATE 11/04/17 [History Last Taken 11/18/17] fluticasone propionate 50 mcg/actuation nasal spray,suspension (Allergy Relief (fluticasone)) 2 spray intranasal QDAY ALLERGIES 11/04/17 [History Last Taken 11/19/17 0730] multivitamin 1 tab PO QAM SUPPLEMENT 11/04/17 [History Last Taken 11/18/17] albuterol sulfate 2.5 mg/3 mL (0.083 %) solution for nebulization 2.5 mg inhalation Q6HWA.RT WHEEZING 11/13/17 [History Last Taken 11/18/17] nitroglycerin 0.4 mg sublingual tablet 0.4 mg sublingual Q5-15M PRN CHEST PAIN #75 tabs 06/17/20 [Rx Last Taken Unknown] clopidogrel 75 mg tablet 75 mg PO DAILY #90 tabs 03/17/21 [Rx Last Taken Unknown] furosemide 40 mg tablet 40 mg PO QDAY PRN WATER PILL #90 tabs 05/31/21 [Rx Last Taken Unknown] atenolol 25 mg tablet 25 mg PO BID BP #180 tabs 09/11/21 [Rx Last Taken Unknown] amlodipine 10 mg tablet 10 mg PO DAILY BP #90 tabs 10/16/21 [Rx Last Taken Unknown] lisinopril 20 mg tablet 20 mg PO BID BP #180 tabs 10/16/21 [Rx Last Taken Unknown] omeprazole 40 mg capsule,delayed release 40 mg PO DAILY #90 caps 12/25/21 [Rx Last Taken Unknown] potassium chloride 10 mEq tablet,extended release(part/cryst) (Klor-Con M) 20 meq PO DAILY #180 tabs 12/25/21 [Rx Last Taken Unknown] triamterene 37.5 mg-hydrochlorothiazide 25 mg tablet 0.5 tab PO DAILY 12/25/21 [History Last Taken Unknown] atorvastatin 40 mg tablet 40 mg PO QHS CHOLESTEROL #90 tabs 02/05/22 [Rx Last Taken Unknown] hydrocodone-acetaminophen 5-325mg 5mg-325mg 1 tab PO Q6H PRN pain 3 days #10 tabs 05/04/22 [Rx Last Taken Unknown] levofloxacin 750 mg tablet 750 mg PO DAILY #4 tabs 05/04/22 [Rx Last Taken Unknown] Allergy/AdvReac Type Severity Reaction Status Date / Time nifedipine AdvReac Severe SOB,Dizzine Verified 05/04/22 09:25 ss,CP diazepam [From Valium] AdvReac Nausea Verified 05/04/22 09:25 Family History Father CHF (congestive heart failure) Brother CAD (coronary artery disease) Hx of CABG Surgical History 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 Postsurgical percutaneous transluminal coronary angioplasty (PTCA) status Presence of stent in coronary artery (~09/2006) Social History Smoking Status: Former smoker alcohol intake: current details: occasional ROS ROS ED Constitutional Constitutional ED: Denies chills or fever(s) Eyes Eyes: Denies change in vision or discharge from eye(s) ENT ENT ED: Denies discharge from eye(s), rhinorrhea or sore throat Cardiovascular Cardiovascular: Denies chest pain or palpitations Respiratory/Chest Respiratory/Chest: Denies cough or dyspnea Gastrointestinal Gastrointestinal: Reports abdominal pain and nausea; Denies diarrhea or vomiting Genitourinary Genitourinary ED: Denies difficulty urinating or dysuria Musculoskeletal Musculoskeletal: Reports back pain; Denies extremity pain Integumentary Denies Abrasions or rash Neurologic Neurologic: Denies headache(s) or weakness Psychiatric Psychiatric: Denies anxiety or depression Allergic/Immunologic Allergic/Immunologic ED: Denies lip swelling or urticaria EXAM Physical Exam Const Vital Signs: 05/04/22 09:23 05/04/22 10:46 Temperature 97 F L Temperature Source Temporal Pulse Rate 60 Respiratory Rate 18 Respiratory Effort Normal Non-Labored Blood Pressure 141/77 H Blood Pressure Mean 98 Pulse Ox 96 Oxygen Delivery Method Room Air Positive well nourished and well developed General Appearance ED: well developed HEENT Reports normocephalic and head/scalp atraumatic Eyes PERRL and EOMs intact bilaterally Neck supple Chest Wall inspection of chest normal and palpation of chest normal Resp normal respiratory effort and clear to auscultation bilaterally Cardio regular rate and regular rhythm GI normal to inspection, nondistended, normoactive bowel sounds Palpation: soft Extremity normal to inspection Neuro oriented x3 and no sensory deficits noted Sensorium / Orientation: alert Motor Exam: strength 5/5 throughout Psych mental status grossly normal Skin no rashes or lesions noted MDM MDM MDM Narrative Medical decision making narrative: Patient given dose of Toradol, morphine, Zofran, IV fluids. Lab work obtained along with urinalysis and CT flank. Lab Data Attestation: I reviewed the patient's lab results. Labs: Laboratory Results - last 24 hr 05/04/22 05/04/22 05/04/22 09:35 09:35 09:40 WBC 6.3 RBC 4.87 Hgb 14.8 Hct 42.2 MCV 86.7 MCH 30.4 MCHC 35.1 RDW Std Deviation 39.2 RDW Coeff of [place] 12.3 Plt Count 205 MPV 9.9 Immature Gran % (Auto) 0.300 Neut % (Auto) 63.0 Lymph % (Auto) 19.8 [place] % (Auto) 7.5 Eos % (Auto) 8.6 H Baso % (Auto) 0.8 Absolute Neuts (auto) 4.0 Absolute Lymphs (auto) 1.25 Nucleated RBC % 0 Sodium 137 Potassium 3.7 Chloride 101 Carbon Dioxide 30.0 Anion Gap 6 BUN 22 H Creatinine 1.14 Estim Creat Clear Calc 58.62 Est GFR (MDRD) Af Amer 80 Est GFR (MDRD) Non-Af 66 BUN/Creatinine Ratio 19.3 Glucose 153 H Calcium 9.6 Urine Color Straw Urine Clarity Clear Urine pH 6.5 Ur Specific [place] 1.010 Urine Protein Negative Urine Glucose (UA) Normal Urine Ketones Negative Urine Occult Blood Negative Urine Nitrite Negative Urine Bilirubin Negative Urine Urobilinogen Normal Ur Leukocyte Esterase Negative Urine RBC 0 SEEN Urine WBC 0 SEEN Ur Squamous Epith Cells 0 SEEN Urine Bacteria 0 SEEN Urine Mucus 0 SEEN Radiography Diagnostic Testing: Clinical Impression(s) from Imaging Studies Abdomen/Pelvis CT 05/04/22 09:41 IMPRESSION: Bibasilar pulmonary infiltrates worse on the right side. Prostatic enlargement with indentation of the bladder base. Radiation seeds are seen within the prostate. Umbilical hernia containing fat. The neck of hernia measures 2.8 cm. Small left inguinal hernia containing fat. Multiple small gallstones. Electronically Signed: Kurt Sibley MD at 10:26 EDT , EKG Initial EKG: Attestation: I personally reviewed and interpreted this EKG as follows: Interpretation: Sinus Bradycardia (Sinus bradycardia at 48 bpm. No acute ischemia. QTC is 402.) Treatment and Re-Evaluation Narrative: CBC and chemistry studies unremarkable. Urinalysis reveals no evidence of hematuria and no infection. CT flank reveals bibasilar pulmonary infiltrates worse on the right. No obvious ureteral calcification noted. He does have an umbilical hernia and a small left inguinal hernia. On repeat evaluation patient is resting comfortably. He does not report that he has had cough and some wheezing. He may have a right lower lobe infiltrate that is giving him referred pain to his right flank. He has no tenderness in the right upper quadrant. Patient will be treated with Levaquin and will be given hydrocodone for breakthrough pain. Return instructions provided. Discharge Plan Triage Chief Complaint: Flank Pain ED Provider: Allyson Velazquez Dx/Rx/DC Orders Clinical Impression: Pneumonia, Acute right flank pain Instructions: ED Flank Pain, Uncertain Cause, ED Pneumonia (Adult) Prescriptions: New levofloxacin 750 mg tablet 750 mg PO DAILY Qty: 4 0RF hydrocodone-acetaminophen 5-325 mg tablet 1 tab PO Q6H PRN (Reason: pain) 3 Days Qty: 10 0RF No Action albuterol sulfate 90 mcg/actuation HFA aerosol inhaler 2 puff INHALATION Q6H PRN (Reason: Wheezing) finasteride 5 mg tablet 5 mg PO QDAY multivitamin tablet 1 tab PO QAM fluticasone propionate [Allergy Relief (fluticasone)] 50 mcg/actuation spray,suspension 2 spray INTRANASAL QDAY furosemide 40 mg tablet 40 mg PO QDAY PRN (Reason: WATER PILL) Qty: 90 3RF triamterene-hydrochlorothiazid 37.5-25 mg tablet 0.5 tab PO DAILY potassium chloride [Klor-Con M10] 10 mEq tablet,ER particles/crystals 20 meq PO DAILY Qty: 180 3RF omeprazole 40 mg capsule,delayed release(DR/EC) 40 mg PO DAILY Qty: 90 3RF aspirin 325 MG tablet 325 mg PO DAILY tamsulosin 0.4 MG capsule 0.4 mg PO DAILY albuterol sulfate 2.5 MG/3 ML solution for nebulization 2.5 mg inhalation Q6HWA.RT nitroglycerin 0.4 mg tablet, sublingual 0.4 mg SUBLINGUAL Q5-15M PRN (Reason: CHEST PAIN) Qty: 75 3RF clopidogrel 75 mg tablet 75 mg PO DAILY Qty: 90 3RF atenolol 25 mg tablet 25 mg PO BID Qty: 180 3RF amlodipine 10 mg tablet 10 mg PO DAILY Qty: 90 3RF lisinopril 20 mg tablet 20 mg PO BID Qty: 180 3RF atorvastatin 40 mg tablet 40 mg PO QHS Qty: 90 3RF Primary Care Provider: Carolina Mendez Referrals: Carolina Mendez MD [Primary Care Provider] - 1 Week Disposition Disposition: Home, Self Care
[2022-05-04 09:53] LABS: Bacteria 0 SEEN /hpf (None Seen); Mucous, Urine 0 SEEN /hpf (<or=2+); Red Blood Cells-Urine 0 SEEN /hpf (0-5); Squamous Epithelial Cells - UA 0 SEEN /hpf (0-5); White Blood Cells 0 SEEN /hpf (0-5)
[2022-05-04] MEDS: Ketorolac 15 MG/ML Vial IV (09:57)
[2022-05-04] MEDS: Ondansetron 4 MG/2 ML Vial IV (09:58)
[2022-05-04] MEDS: Morphine 4 MG/ML Syringe IV (09:58)
[2022-05-04 09:59] LABS: Absolute Lymphocyte Count 1.25 X10^3/uL (0.83-4.51); Basophil# 0.05 X10^3/uL; Basophil% 0.8 % (0-1); Eosinophil# 0.54 X10^3/uL; Eosinophils% 8.6 % (0-5); Hematocrit 42.2 % (40-54); Hemoglobin 14.8 g/dL (13.0-16.5); Lymphocyte # 1.25 X10^3/ul (0.83-4.51); Lymphocyte % 19.8 % (19-41); Mean Corp Hgb Conc 35.1 g/dL (32-36); Mean Corpuscular Hgb 30.4 pg (27.0-32.0); Mean Corpuscular Volume 86.7 fL (80-94); Mean Platelet Vol. 9.9 fl (6.2-12.0); Monocyte# 0.47 X10^3/uL; Monocyte% 7.5 % (0-10); NRBC Flagged by Analyzer 0 % (0-5); Neutrophil # 3.97 X10^3/uL (2.7-7.7); Platelet Count 205 K/mm3 (150-450); RBC Distribution Width CV 12.3 % (11.6-14.6); RBC Distribution Width SD 39.2 fl (35.1-43.9); Red Blood Count 4.87 M/mm3 (4.6-6.2); White Blood Count 6.3 K/mm3 (4.4-11.0)
[2022-05-04 09:59] LABS: Color, Urine Straw (Yellow); Glucose, Dipstick Normal (Normal); Ketone-Dipstick Negative (Negative); Leukocyte Esterase-Dipstick Negative /ul (Negative); Nitrite-Dipstick Negative (Negative); Occult Blood-Urine Negative /ul (Negative); Protein-Dipstick Negative (Negative); Urine Bilirubin Dipstick Negative (Negative); Urine Clarity Clear (Clear); Urine Urobilinogen Normal (Normal); Urine pH 6.5 (5.0 - 8.0)
[2022-05-04] MEDS: 0.9% Normal Saline 1,000 ML 150 ML IV (10:00)
[2022-05-04 10:07] LABS: Anion Gap 6 (5-15); BUN 22 mg/dL (7-18); BUN/Creat Ratio 19.3 RATIO (10-20); Calcium,Total 9.6 mg/dL (8.5-10.1); Chloride 101 mmol/L (98-107); Creatinine, Serum 1.14 mg/dL (0.70-1.30); EST Glomerular Filtration Rate 66 mL/min (>60); Est Glom Filt Rate - Afr Amer 80 mL/min (>60); Estimated Creatinine Clearance 58.62 ml/min; Glucose 153 mg/dL (74-106); Potassium 3.7 mmol/L (3.5-5.1); Sodium Level 137 mmol/L (136-145)
--- NOTE | 2022-05-04 10:44 | EKG12_ITS ---
Test Reason : FLANK PAIN Blood Pressure : / mmHG Vent. Rate : 048 BPM Atrial Rate : 048 BPM P-R Int : 184 ms QRS Dur : 098 ms QT Int : 450 ms P-R-T Axes : 057 007 029 degrees QTc Int : 402 ms Sinus bradycardia Otherwise normal ECG Confirmed by MARCELINO BEATTY, GALINDO ([id number]), department editor ADIS LEWIS ([id number]) on 05/07/2022 11:38:24 AM Referred By: Confirmed By:GALINDO BENSON MD
== END 2022-05-04 11:27 | disposition home or self-care (01) ==
PROVIDERS: Emergency Provider Emergency Medicine; PCP Family Medicine; Visit Provider Emergency Medicine
DX: J18.9 Pneumonia, unspecified organism (principal); R10.9 Unspecified abdominal pain; E78.5 Hyperlipidemia, unspecified; I10 Essential (primary) hypertension; R11.0 Nausea; I25.10 Atherosclerotic heart disease of native coronary artery without angina pectoris; J45.909 Unspecified asthma, uncomplicated; Z87.891 Personal history of nicotine dependence
CPT/HCPCS: 74176; 80048; 81001; 85025; 93005; 96374; 96375; 99283; J7030; A4216; J2405

== ENCOUNTER → 2022-07-11 | Outpatient (CLI) | payer MEDICARE, OTHER, SELFPAY ==
[2022-07-11 13:07] LABS: AST(SGOT) 17 U/L (15-37); Alanine Aminotransfer ALT/SGPT 32 U/L (16-61); Albumin, Serum 4.2 g/dL (3.2-5.0); Alkaline Phosphatase 107 U/L (45-117); Bilirubin, Direct 0.32 mg/dL (0.00-0.30); Cholesterol 138 mg/dL (200); Globulin 3.1 g/dL (2.2-4.2); High Density Lipoprotein 48 mg/dL; Protein, Total 7.3 g/dL (6.4-8.2); Triglycerides 128 mg/dL; Very Low Density Lipoprotein 26 mg/dL (5-40)
== END | disposition home or self-care (01) ==
PROVIDERS: PCP Family Medicine; Referring Provider Internal Medicine Cardiovascular Disease; Visit Provider Internal Medicine Cardiovascular Disease
DX: E78.00 Pure hypercholesterolemia, unspecified (principal)
CPT/HCPCS: 36415; 80061; 80076

== ENCOUNTER → 2022-11-01 | Outpatient (CLI) | payer MEDICARE, OTHER, SELFPAY ==
[2022-11-01 12:45] LABS: PSA,Total- Diagnostic 6.13 ng/mL (0.0-4.0)
== END | disposition home or self-care (01) ==
LOC: MTLAB 10:24
PROVIDERS: PCP Family Medicine; Referring Provider Urology; Visit Provider Urology
DX: R97.20 Elevated prostate specific antigen [PSA] (principal)
CPT/HCPCS: 36415; 84153

== ENCOUNTER 2022-11-21 16:30 | Outpatient (RCR) | payer MEDICARE, OTHER, SELFPAY ==
--- NOTE | 2022-10-22 19:10 | HP.PTEVAL_ITS ---
Patient's Visit Information KIARRA BARRERA is a 77 year old M referred to Physical Therapy by CARRIE FARR with a diagnosis of LOW BACK PAIN ,UNSPECIFIED CHRONICITY. Date of Evaluation: 10/22/22 Physical Therapist: Elder Arvizu PT, Cert MDT, OCS - Visit Plan Frequency: 2x /Week Duration: 4 Weeks Plan: PT INERVETIONS DLS ,LUMBAR FLEXION ,LE FLEXABLITY ,POSTURAL EX'S ,AND MODATIES FOR PAIN - Subjective This 77 y/o male presents to physical therapy with lumbar radiculopathy R> L. Patient lumbar radiculopathy many years ~ 10 . Seen licensing specialist for back Dr. Farr. Initially ,seen family DR. Patient had x-rays. Patient lumbar symmetrical to gluteus described as needles/paresthesia/tingling ,sharp pain along with ache. Aggravating factors walking/standing . Alleviating rest and sitting. Bowel/bladder-. Coughing/sneezing -. Patient is able to sleep at night. Patient has breathing issues affects back pain. Patient taking no pain medication. Patient has tried chiropractors . Patient pain affects QOL and function. SOCIAL: . VOCATION: retired - Pain Bilateral Back Pain Intensity (Out of 10): 10 Pain Intensity Range: 10 Comment: walking/standing - Objective POSTURE: mild forward posture. GAIT: reciprocal pattern mild forward hips/knee flexed. SYMMETRIES: align. PALPATION: unremarkable. NEURO: c/o paresthesia/tingling ,feet ,reflexes L3-4,L4-5,L5-S1 2/3. MMT: quads/hams 4/5 ,ankle 4/5 ,hip flexion 4-/5. LUMBAR ROM: flexion mod loss ,extension mod loss ,side glides mod loss. FLEXABILITY: hamstrings mod loss. - Special Tests L/S Slump test left side: Negative L/S Slump test right side: Negative L/S Left Straight Leg Raise: Negative L/S Right Straight Leg Raise: Negative Lumbar Standing: Flexion - Mechanical Response: No effect Lumbar Standing: Flexion - Symptoms During Testing: Decreases Lumbar Standing: Flexion - Symptoms After Testing: No better Lumbar Standing: Extension - Mechanical Response: No effect Lumbar Standing: Extension - Symptoms During Testing: Increases Lumbar Standing: Extension - Symptoms After Testing: No better Lumbar Standing: Right Side Glides - Mechanical Response: No effect Lumbar Standing: Right Side [place] - Symptoms During Testing: No effect Lumbar Standing: Right Side [place] - Symptoms After Testing: No effect Lumbar Standing: Left Side [place] - Mechanical Response: No effect Lumbar Standing: Left Side [place] - Symptoms During Testing: No effect Lumbar Standing: Left Side [place] - Symptoms After Testing: No effect Lumbar Lying: Flexion - Mechanical Response: No effect Lumbar Lying: Flexion - Symptoms During Testing: Decreases Lumbar Lying: Flexion - Symptoms After Testing: No better Comments:: SEATED BACK FLEXION - Balance/Special Test Scores Oswestry Low Back Score: 20 - Goals Goal 1:: Patient to be I with back Goal Time Frame: 4-6 Weeks Goal 2:: Patient to demonstrate 50% improvement with less pain and improved function Goal Time Frame: 4-6 Weeks Goal 3:: Patient to improve lumbar ROM for function of recovery to tie shoes Goal Time Frame: 4-6 Weeks Goal 4:: Patient be able to stand and walk further distances to improve ADL's Goal Time Frame: 4-6 Weeks Goal 5:: Patient to back oswestry score by 5 points to improve QOL Goal Time Frame: 4-6 Weeks - Rehabilitation Potential Physical Therapy Diagnosis: This patient lumbar pain with possible stenosis with pain worse with positioning and motion testing worse with walking/standing better with sitting thus benefit from skilled PT Rehabilitation Potential: Good - Anticipated Interventions Patient/Client Instruction: Educate patient on: Condition, Plan of Care For the Purpose of:: To decrease pain, To increase ROM, To improve muscle performance and motor function, To improve ability to perform ADL's, To increase tolerance to activity/condition/position, To improve ability of physical actions for home/community/work/leisure, To improve health of tissue, To decrease soft tissue restriction, To increase flexibility/ROM Therapeutic Exercise to Include: Strength training, Balance training, Body mechanics, Postural training, Flexibilty training, Dynamic Lumbar Stabilization For the Purpose of:: To decrease pain, To increase ROM, To improve muscle performance and motor function, To increase tolerance to activity/condition/position, To improve ability of physical actions for home/community/work/leisure, To improve health of tissue, To decrease soft tissue restriction, To increase flexibility/ROM, To improve endurance TENS: Yes IF ES: Yes Cryotherapy (ice pack, ice massage): Yes Thermo therapy (hot pack): Yes Ultrasound (thermal/non thermal): Yes For the Purpose of:: To decrease pain, To increase ROM, To improve nutrient delivery to tissue, To increase oxygenation perfusion, To improve health of t issue, To decrease soft tissue restriction, To increase flexibility/ROM Thank you for the opportunity to evaluate your patient. For Medicare and Medicare HMO plans, please review the plan of care and approve it. It will need to be FAXED BACK to us at [phone] for Medicare purposes. For Medicare only, by signing this I certify the plan of care. Please let me know if there are questions or concerns regarding this plan of care. Physician Signature: Date:
--- NOTE | 2023-03-05 10:56 | HP.PT.NRP ---
Patient Information Patient Information: KIARRA BARRERA was seen in my office for initial evaluation on 10/22/22. The following Plan of Care was established for this patient: POC Established Initial Frequency: 2x /Week Initial Duration: 4 Weeks Anticipated Interventions Patient/Client Instruction: Educate patient on: Condition and Plan of Care For the Purpose of:: To decrease pain, To increase ROM, To improve muscle performance and motor function, To improve ability to perform ADL's, To increase tolerance to activity/condition/position, To improve ability of physical actions for home/community/work/leisure, To improve health of tissue, To decrease soft tissue restriction and To increase flexibility/ROM Therapeutic Exercise to Include: Strength training, Balance training, Body mechanics, Postural training, Flexibilty training and Dynamic Lumbar Stabilization For the Purpose of:: To decrease pain, To increase ROM, To improve muscle performance and motor function, To increase tolerance to activity/condition/position, To improve ability of physical actions for home/community/work/leisure, To improve health of tissue, To decrease soft tissue restriction, To increase flexibility/ROM and To improve endurance TENS: Yes IF ES: Yes Cryotherapy (ice pack, ice massage): Yes Thermo therapy (hot pack): Yes Ultrasound (thermal/non thermal): Yes For the Purpose of:: To decrease pain, To increase ROM, To improve nutrient delivery to tissue, To increase oxygenation perfusion, To improve health of tissue, To decrease soft tissue restriction and To increase flexibility/ROM Last Seen Last Seen: This patient was last seen in our office . Pertinent comments regarding their Physical therapy will appear below: Patient seen for PT for back pain focusing on DLS and postural ex's with 5 visits plan seda RTD At this point I will be discontinuing this patient from physical therapy. I would be happy to see this patient again in the future if found appropriate by the physician. Thank you! Elder Arvizu, PT, Cert MDT, OCS Balance/Gait/Functional tests Balance/Special Test Scores Oswestry Low Back Score: 20
== END 2022-11-21 19:00 | disposition home or self-care (01) ==
LOC: PT 16:30
PROVIDERS: PCP Family Medicine
DX: M54.50 Low back pain, unspecified (principal)
CPT/HCPCS: 97110; 97162

== ENCOUNTER → 2022-12-24 | Outpatient (CLI) | payer MEDICARE, OTHER, SELFPAY ==
[2022-12-24 09:35] LABS: Absolute Lymphocyte Count 1.17 X10^3/uL (0.83-4.51); Absolute Neutrophil Count 3.8 X10^3/uL (2.0-7.7); Basophil# 0.03 X10^3/uL; Basophil% 0.5 % (0-1); Eosinophil# 0.25 X10^3/uL; Eosinophils% 4.3 % (0-5); Hematocrit 41.3 % (40-54); Hemoglobin 14.1 g/dL (13.0-16.5); Lymphocyte # 1.17 X10^3/ul (0.83-4.51); Lymphocyte % 20.3 % (19-41); Mean Corp Hgb Conc 34.1 g/dL (32-36); Mean Corpuscular Hgb 31.5 pg (27.0-32.0); Mean Corpuscular Volume 92.2 fL (80-94); Mean Platelet Vol. 9.9 fl (6.2-12.0); Monocyte# 0.48 X10^3/uL; Monocyte% 8.3 % (0-10); NRBC Flagged by Analyzer 0 % (0-5); Neutrophil # 3.81 X10^3/uL (2.7-7.7); Neutrophil % 66.1 % (47-70); Platelet Count 177 K/mm3 (150-450); RBC Distribution Width CV 13.5 % (11.6-14.6); RBC Distribution Width SD 45.1 fl (35.1-43.9); Red Blood Count 4.48 M/mm3 (4.6-6.2); White Blood Count 5.8 K/mm3 (4.4-11.0)
[2022-12-24 10:01] LABS: BNP,B-Type NATRIURETIC PEPTIDE 48.4 pg/mL (0-100)
[2022-12-24 10:03] LABS: Anion Gap 6 (5-15); BUN 25 mg/dL (7-18); BUN/Creat Ratio 24.5 RATIO (10-20); Calcium,Total 9.5 mg/dL (8.5-10.1); Chloride 109 mmol/L (98-107); Creatinine, Serum 1.02 mg/dL (0.70-1.30); EST Glomerular Filtration Rate 75 mL/min (>60); Est Glom Filt Rate - Afr Amer 91 mL/min (>60); Glucose 121 mg/dL (74-106); Potassium 3.7 mmol/L (3.5-5.1); Sodium Level 140 mmol/L (136-145)
== END | disposition home or self-care (01) ==
LOC: LAB 09:07
PROVIDERS: PCP Family Medicine; Referring Provider Nurse Practitioner Gerontology; Visit Provider Nurse Practitioner Gerontology
DX: R06.09 Other forms of dyspnea (principal)
CPT/HCPCS: 36415; 80048; 83880; 85025

== ENCOUNTER → 2023-04-29 | Outpatient (CLI) | payer MEDICARE, OTHER, SELFPAY ==
[2023-04-29 18:12] LABS: PSA,Total- Diagnostic 3.52 ng/mL (0.0-4.0)
== END | disposition home or self-care (01) ==
LOC: MTLAB 14:50
PROVIDERS: PCP Family Medicine; Referring Provider Urology; Visit Provider Urology
DX: R97.20 Elevated prostate specific antigen [PSA] (principal)
CPT/HCPCS: 36415; 84153

== ENCOUNTER → 2023-07-11 | Outpatient (CLI) | payer MEDICARE, OTHER, SELFPAY ==
[2023-07-11 13:41] LABS: AST(SGOT) 16 U/L (15-37); Alanine Aminotransfer ALT/SGPT 29 U/L (16-61); Albumin, Serum 3.7 g/dL (3.2-5.0); Alkaline Phosphatase 107 U/L (45-117); Bilirubin, Direct 0.27 mg/dL (0.00-0.30); Cholesterol 128 mg/dL (200); Globulin 3.7 g/dL (2.2-4.2); High Density Lipoprotein 42 mg/dL; Protein, Total 7.4 g/dL (6.4-8.2); Triglycerides 131 mg/dL; Very Low Density Lipoprotein 26 mg/dL (5-40)
--- NOTE | 2023-07-11 15:08 | RAD_ITS ---
STUDY: X-RAY CHEST REASON FOR EXAM: Male, 78 years old. SOB TECHNIQUE: PA and lateral views of the chest. COMPARISON: 10/22/2021. FINDINGS: The lungs are underexpanded with right infrahilar and minimal left basilar atelectasis. Otherwise lung chou are clear. There is no demonstrated pleural abnormality. Normal size heart. Normal mediastinum and carol. Normal visualized pulmonary arteries. There is atherosclerotic calcification of the aortic arch with tortuosity. There are diffuse degenerative changes of the visualized thoracic spine. Normal visualized ribs, clavicles, and shoulders. There is no demonstrated abnormality of the visualized soft tissue structures of the upper abdomen. RAD/Chest PA and Lateral IMPRESSION: Mild bilateral atelectasis, otherwise no acute cardiopulmonary disease. Electronically Signed: Laura Nascimento MD at 17:46 EST ,
== END | disposition home or self-care (01) ==
PROVIDERS: PCP Family Medicine; Referring Provider Internal Medicine Cardiovascular Disease; Visit Provider Internal Medicine Cardiovascular Disease
DX: R06.09 Other forms of dyspnea (principal); I10 Essential (primary) hypertension; J45.909 Unspecified asthma, uncomplicated; E78.5 Hyperlipidemia, unspecified; I25.10 Atherosclerotic heart disease of native coronary artery without angina pectoris
CPT/HCPCS: 36415; 71046; 80061; 80076

== ENCOUNTER 2023-07-15 15:30 | Outpatient (RCR) | payer MEDICARE, OTHER, SELFPAY ==
--- NOTE | 2023-04-29 18:23 | HP.PTEVAL ---
Patient's Visit Information Visit Information Visit Information: KIARRA BARRERA is a 78 year old M referred to Physical Therapy by CARRIE HELM with a diagnosis of SPINAL STENOSIS. Date of Evaluation: 04/29/23 Physical Therapist: Loretta Dietz PT, Cert MDT Visit Plan Frequency: 2-3x /Week Duration: 4-6 Weeks Plan: POSTURE CORRECTION/STRENGTHENING, INSTRUCTION IN APPROPRIATE BODY MECHANICS AND ACTIVITY MODIFICATIONS. DLS STARTING WITH A NEUTRAL SPINE PROGRESSING ROM TOLERATED. SOCRATES LE ROM, STRETCHING AND STRENGTHENING. HEP INSTRUCTION. 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 CAN SIT OR STAND AT WORK. WORKING ABOUT 12 HOURS A WK - 2X6 HRS A DAY. LIVES IN [place] WITH BASEMENT AND DOES STEPS DAILY. LIVES WITH WHOM IS IN GOOD HEALTH. Present symptoms: R TOE NUMBNESS. R LOW BACK/HIP PAIN/CRAMPING. MILD INTERMITTENT R LE ACHING (THE WHOLE LEG). SOCRATES KNEE PAIN R>L THAT PATIENT RELATES TO ARTHRITIS. CORE AND LE WEAKNESS. Present since: CHRONIC FOR YEARS - 8-10 YEARS Pain Scale: WORST 7/10, LEAST 1/10 Currently: 2/10 Is it getting better, worse or staying the same: MAYBE GRADUALLY GETTING BETTER SLOWLY Commenced as a result of: NO APPARENT REASON OTHER THAN SURGERY. THIS PARTICULAR PAIN WAS NOT THERE BEFORE SURGERY THAT PATIENT IS AWARE OF UNLESS OTHER PAIN OVER SHADOWED IT. HE REPORTS THE PAIN HE HAD BEFORE SURGERY FELT MORE LIKE NERVE PAIN AND THIS FEELS MORE LIKE MUSCLE PAIN/CRAMPING. Worse: STANDING AND WALKING. WHEN I GET TIRED THAT IS WHEN IT SEEMS TO HURT THE WORST . THE PAIN GETS ITS WORST WITH ABOUT 15 MINUTES OF STANDING OR WALKING. Better: JUST SITTING USUALLY MAKES IT FEEL BETTER. USES A VIBRATING BALL THAT HELPS TOO. Disturbed sleep: NO Previous history/Previous treatment: 8-10 YEARS OF BACK PROBLEMS THAT HE TRIED TO TREAT WITH CHIROPRACTIC BUT IT GOT TO WHERE HE COULDN'T WALK OR DO ANYTHING SO HAD THE SURGERY. ALSO TRIED PT BEFORE SURGERY WITHOUT SUCCESS. ATTEMPTED INJECTIONS BUT COULDN'T GET THE NEEDLE IN. NO TREATMENTS SINCE SURGERY - JUST WALKING . Treatment this episode: LUMBAR SURGERY BY DR. CARRIE HELM FEB 21 2023. PATIENT REPORTS HE REMOVED SEVERAL SPURS AND IT SEEMED TO WORK. PATIENT REPORTS HIS NERVE PAIN IS PRETTY MUCH GONE BUT HE STILL HAS SOME NUMBNESS IN HIS TOES. 90% IMPROVEMENT REPORTED. Coughing/sneezing/straining: NEGATIVE Gait: PATIENT REPORTS HE USED A WALKER FOR ABOUT A WEEK AFTER SURGERY THEN A CANE UNTIL ABOUT 4-6 WKS AGO. NO FALLS. NOT ON A WALKING PROGRAM BUT TRIES TO WALK 5-6,000 STEPS A DAY AND SOME TIMES 9-10,000 STEPS. Bowel or Bladder Dysfunction: NO Accidents: NO Unexplained weight loss: NO Imaging: NONE SINCE SURGERY THAT PATIENT IS AWARE OF. PMH/Recent major surgery: APPROX 20% LUNG CAPACITY ON ONE SIDE - SHINGLES paralyzed the phrenic NERVE 2017. PHYSICIAN RESTRICTIONS - ALL RESTRICTION HAVE BEEN LIFTED PER PATIENT REPORT - HE SAID IF IT HURTS DON'T DO IT . Objective Objective: Sitting/Standing Posture: LEFT SHLD LEVEL AND L ILIAC CREST LEVEL HIGHER THAN R. DECREASED LUMBAR LORDOSIS. STANDS WITH SOCRATES KNEE FLEXION. Active Correction of posture: BETTER. DECREASED R LB/HIP PAIN WITH POSTURE CORRECTION IN SITTING AND STANDING. Other Observations: INDEP GAIT INTO PT WITHOUT ANY AD'S OR LOB. DECREASED CADANCE AND DECREASED SOCRATES STRIDE LENGTH. PATIENT IS ABLE TO INDEP'LY TRANSFER FROM SIT TO STAND WITHOUT UE ASSIST. Sensory deficit: SOCRATES LE LIGHT TOUCH SENSATION GROSSLY INTACT AND SYMMETRICAL. PATIENT REPORTS HAVING A TENDER AREA ON THE FRONT OF HIS L JAMES DUE TO HITTING IT WITH SOMETHING. HE HAS SOCRATES LE EDEMA WHICH HE REPORTS IS CHRONIC. ROM deficit: SOCRATES LE HS AND GASTROC-SOLEUS COMPLEX TIGHTNESS Motor deficit: SOCRATES HIPS 4/5, KNEES 5/5, ANKLES 5/5. Dural Signs: NEGATIVE SOCRATES LE'S Lumbar mvmt loss: flex - MOD ext - JENNY - R SG - JENNY L SG - JENNY - INCREASES R LOW BACK PAIN Core strength: POOR Palpation: NO ACUTE LUMBAR OR HIP REGION TENDERNESS. INCREASED MUSCLE TONE SOCRATES LUMBAR PARASPINALS. INCISION LOOKS GOOD WITHOUT ANY SIGNS OF INFECTION. HE DOES HAVE A LITTLE BIT OF A RASH IN THE LOW BACK REGION BUT PATIENT REPORTS HE HAS HAD THAT FOR A LONG TIME SINCE BEFORE SURGERY AND HE HAS MEDICATION FROM THE CABLE MOCK UP ASSEMBLER DR. KONG FOR IT. TREATMENT: NEUROMUSCULAR REEDUCATION - RETRAINING OF MVMT AND POSTURE FOR SITTING, LYING AND STANDING ACTIVITIES. Balance/Special Test Scores Oswestry Low Back Score: 6 Goals Goal 1:: DECREASE C/O R LOW BACK/HIP PAIN BY 25% Goal Time Frame: 4-6 Weeks Goal 2:: Patient will be able to stand and walk for 30 minutes without increased symptoms/needing to sit down for increased ADL/work tolerance. Goal Time Frame: 4-6 Weeks Goal 3:: Patient will have increased BLE and core strength increased by 1/2 grade of all effected musculature. Goal Time Frame: 4-6 Weeks Goal 4:: PATIENT WILL BE INDEP WITH A HEP FOR CONTINUED IMPROVEMENT ONCE FORMAL PHYSICAL THERPAY CONCLUDES. Rehabilitation Potential Physical Therapy Diagnosis: R BACK/HIP PAIN. BACK AND SOCRATES LE WEAKNESS AND STIFFNESS. Rehabilitation Potential: Good Anticipated Interventions Patient/Client Instruction: Educate patient on: Condition, Plan of Care and Risk Factors For the Purpose of:: To improve self management Therapeutic Exercise to Include: Strength training, Body mechanics, Postural training, Flexibilty training, Gait and locomotor training, Neuromotor development and Dynamic Lumbar Stabilization For the Purpose of:: To decrease pain, To increase ROM, To improve muscle performance and motor function, To increase tolerance to activity/condition/position, To improve ability of physical actions for home/community/work/leisure and To improve gait and locomotor functions Text: Thank you for the opportunity to evaluate your patient. For Medicare and Medicare HMO plans, please review the plan of care and approve it. It will need to be FAXED BACK to us at [phone] for Medicare purposes. For Medicare only, by signing this I certify the plan of care. Please let me know if there are questions or concerns regarding this plan of care. Physician Signature: Date:
--- NOTE | 2023-07-15 16:05 | HP.PTDCSUM_ITS ---
Discharge Summary D/C summary: It has been my pleasure to treat KIARRA BARRERA referred by CARRIE HELM, with the diagnosis of SPINAL STENOSIS for a total of 11 visit(s). Discharge Date: 07/15/23 Please see the following information for a summary of their discharge status. Subjective Subjective: THE NERVE PAIN IS PRETTY WELL GONE . PATIENT REPORTS HE TALKED TO HIS JUVENILE DETENTION OFFICER LAST WEEK ABOUT EXERCISE AND GAVE HIM GUIDELINES FOR HIS HEART RATE (AROUND 100 BPM). PATIENT REPORTS HE AND HIS ARE PLANNING TO EX HERE AT 3 DAYS A WEEK BUT NOT TODAY DUE TO HIS 'S KNEE HURTING. HOPING TO START SATURDAY (HAS EX LOG). PATIENT STATES HE KNOWS WHAT TO DO NOW AND IT IS JUST A MATTER OF DOING IT. STATES THEY WENT TO CALLING HOURS RECENTLY AND WAS ABLE TO STAND LONGER (ABOIUT 45 MINUTES). Overall Improvement % Improvement: 80 Objective Objective/Function: PATIENT WAS SEEN TODAY FOR RE-ASSESSMENT OF PROGRESS TOWARD THE SET PT GOALS AND THE NEED FOR FURTHER PHYSICAL THERAPY VS READINESS FOR DISCHARGE. UPON EXAM TODAY: ROM deficit: SOCRATES LE HS AND GASTROC-SOLEUS COMPLEX TIGHTNESS Motor deficit: SOCRATES LE'S 5/5. Dural Signs: NEGATIVE SOCRATES LE'S Lumbar mvmt loss: flex - MIN ext - JENNY R SG - JENNY L SG - JENNY PATIENT DENIES PAIN WITH LUMBAR ROM TESTING ALL PLANES. Core strength: FAIR Palpation: NO ACUTE LUMBAR OR HIP REGION TENDERNESS. INCREASED MUSCLE TONE SOCRATES LUMBAR PARASPINALS. INCISION LOOKS GOOD WITHOUT ANY SIGNS OF INFECTION. LITTLE TO NO RASH TODAY. Goals Goal 1:: DECREASE C/O R LOW BACK/HIP PAIN BY 25% Goal Progress: Goal Met Goal 2:: Patient will be able to stand and walk for 30 minutes without increased symptoms/needing to sit down for increased ADL/work tolerance. Goal Progress: Goal Met Goal 3:: Patient will have increased BLE and core strength increased by 1/2 grade of all effected musculature. Goal Progress: Goal Met Goal 4:: PATIENT WILL BE INDEP WITH A HEP FOR CONTINUED IMPROVEMENT ONCE FORMAL PHYSICAL THERPAY CONCLUDES. Goal Progress: Goal Met Plan Plan: D/C TO INDEP EX. PATIENT AGREEABLE. D/C Information d/c sentence: If there are questions or concerns regarding this patient's physical therapy, please feel free to call me at [phone]. Thank you for the referral of this patient. Sincerely, Loretta Dietz, PT, Cert MDT Balance/Gait/Functional tests Balance/Special Test Scores Oswestry Low Back Score: 1 Improvement % Improvement: 80
== END 2023-07-15 19:00 | disposition home or self-care (01) ==
LOC: PT 15:30
PROVIDERS: PCP Family Medicine
DX: M48.062 Spinal stenosis, lumbar region with neurogenic claudication (principal)
CPT/HCPCS: 97110; 97112; 97162; 97164

== ENCOUNTER → 2023-09-05 | Outpatient (CLI) | payer MEDICARE, OTHER, SELFPAY ==
--- NOTE | 2023-09-05 12:48 | ECHOD_ITS ---
Reason For Study: CAD/ASHD Procedure This was a 2D Doppler, Color Flow transthoracic echocardiogram. Exam performed in department. Left Ventricle Normal LV size. Mild concentric left ventricular hypertrophy. The left ventricular ejection fraction is 65 %. Diastolic function is indeterminate. Right Ventricle Normal right ventricle. Atria The left and right atria are normal. Mitral Valve Redundant mitral valve chords. Mild mitral valve insufficiency. Likely underestimated as regurgitant jet is eccentric. Consider mild to moderate. Tricuspid Valve Mild tricuspid valve insufficiency. Right ventricular systolic pressure estimated to be 39 mmHg. Aortic Valve Trisinus/trileaflet aortic valve. Pulmonic Valve The pulmonic valve is not well visualized. Great Vessels Normal sized aortic root. MMode/2D Measurements & Calculations LVIDd: 4.7 cm IVSd: 1.2 cm Ao root diam: 3.3 cm LVIDs: 2.9 cm LVPWd: 1.2 cm RVDd: 3.8 cm FS: 38.4 % LAV(MOD-bp): 50.4 ml LVAd ap4: 30.0 cm2 SV(MOD-sp4): 59.8 ml LAV(MOD-bp) Indexed: 21.5 ml/m2 LVLd ap4: 8.0 cm LAV(MOD-sp2): 49.9 ml EDV(MOD-sp4): 94.8 ml LAV(MOD-sp4): 43.4 ml EDV(sp4-el): 95.1 ml LVAs ap4: 16.9 cm2 LVLs ap4: 7.0 cm ESV(MOD-sp4): 35.1 ml ESV(sp4-el): 34.5 ml EF(MOD-sp4): 63.0 % EF(sp4-el): 63.7 % SV(sp4-el): 60.6 ml LA dimension(2D): 3.9 cm LA A4 area: 17.6 cm2 RA A4 area: 15.4 cm2 TAPSE: 2.8 cm Time Measurements MV dec time: 0.22 sec Doppler Measurements & Calculations MV E max red: 62.6 cm/sec Lat Peak E' Red: 9.0 cm/sec Med Peak E' Red: 7.7 cm/sec MV A max red: 88.7 cm/sec E/E' lat: 6.9 E/E' med: 8.1 MV E/A: 0.71 Ao V2 max: 108.1 cm/sec LV V1 max: 101.3 cm/sec PA V2 max: 104.2 cm/sec Ao max P.7 mmHg LV V1 max P.1 mmHg TR max red: 289.7 cm/sec TR max P.6 mmHg ECHO/Echo Complete Interpretation Summary Mild concentric left ventricular hypertrophy. The left ventricular ejection fraction is 65 %. Diastolic function is indeterminate. Redundant mitral valve chords. Mild mitral valve insufficiency. Likely underest imated as regurgitant jet is eccentric. Consider mild to moderate. Mild tricuspid valve insufficiency. Right ventricular systolic pressure estimated to be 39 mmHg. Ordering Physician: Sarina Allen Referring Physician: ORLANDO CORTEZ Performed By: Selene Fisher RDCS
== END | disposition home or self-care (01) ==
LOC: CVS 12:45
PROVIDERS: PCP Family Medicine; Referring Provider Internal Medicine Cardiovascular Disease; Visit Provider Internal Medicine Cardiovascular Disease
DX: T82.897A Other specified complication of cardiac prosthetic devices, implants and grafts, initial encounter (principal); R06.09 Other forms of dyspnea; I10 Essential (primary) hypertension; Z95.5 Presence of coronary angioplasty implant and graft; E78.5 Hyperlipidemia, unspecified
CPT/HCPCS: 93306

== ENCOUNTER → 2024-07-16 | Outpatient (CLI) | payer MEDICARE, OTHER, SELFPAY ==
[2024-07-16 12:34] LABS: AST(SGOT) 22 U/L (15-37); Alanine Aminotransfer ALT/SGPT 33 U/L (16-61); Alkaline Phosphatase 113 U/L (45-117); Bilirubin, Direct 0.32 mg/dL (0.00-0.30); Cholesterol 134 mg/dL (200); Globulin 3.5 g/dL (2.2-4.2); High Density Lipoprotein 46 mg/dL; Protein, Total 7.5 g/dL (6.4-8.2); Triglycerides 196 mg/dL; Very Low Density Lipoprotein 39 mg/dL (5-40)
== END | disposition home or self-care (01) ==
PROVIDERS: PCP Family Medicine; Referring Provider Internal Medicine Cardiovascular Disease; Visit Provider Internal Medicine Cardiovascular Disease
DX: E78.5 Hyperlipidemia, unspecified (principal); I25.10 Atherosclerotic heart disease of native coronary artery without angina pectoris
CPT/HCPCS: 36415; 80061; 80076

== ENCOUNTER → 2024-07-24 | Outpatient (CLI) | payer MEDICARE, OTHER, SELFPAY ==
--- NOTE | 2024-07-24 13:58 | ECHOD_ITS ---
Reason For Study: DYSPNEA/SOB Procedure This was a 2D Doppler, Color Flow transthoracic echocardiogram. Exam performed in department. Left Ventricle Mild concentric left ventricular hypertrophy. Normal LV size. The left ventricular ejection fraction is 60 %. Stage 1 diastolic dysfunction. Right Ventricle Normal right ventricle. Atria The left atrium is moderately enlarged. Normal right atrium. Mitral Valve Mildly thickened anterior mitral valve leaflet with redundant cord. Moderate mitral valve regurgitation with eccentric jet. May be underestimated. Consider cardiac MRI or KERVIN for further evaluation if clinically indicated. Tricuspid Valve Trivial tricuspid valve insufficiency. Right ventricular systolic pressure estimated to be 52 mmHg. Aortic Valve Trisinus/trileaflet aortic valve. Pulmonic Valve The pulmonic valve is not well visualized. Great Vessels Normal sized aortic root. Pericardium/Pleural No pericardial effusion. MMode/2D Measurements & Calculations LVIDd: 4.5 cm IVSd: 1.2 cm Ao root diam: 3.3 cm LVIDs: 3.0 cm LVPWd: 1.2 cm RVDd: 3.5 cm FS: 33.9 % LAV(MOD-bp): 54.2 ml LVAd ap4: 32.9 cm2 SV(MOD-sp4): 65.6 ml LAV(MOD-bp) Indexed: 23.0 ml/m2 LVLd ap4: 8.5 cm SI(MOD-sp4): 27.8 ml/m2 LAV(MOD-sp2): 54.0 ml EDV(MOD-sp4): 105.1 ml LAV(MOD-sp4): 49.9 ml EDV(sp4-el): 108.2 ml LVAs ap4: 18.1 cm2 LVLs ap4: 7.5 cm ESV(MOD-sp4): 39.5 ml ESV(sp4-el): 37.4 ml EF(MOD-sp4): 62.4 % EF(sp4-el): 65.4 % SV(sp4-el): 70.8 ml LA A4 area: 18.6 cm2 LA dimension(2D): 4.0 cm RA A4 area: 15.2 cm2 TAPSE: 2.8 cm Time Measurements MV dec time: 0.18 sec Doppler Measurements & Calculations MV E max rde: 57.6 cm/sec Lat Peak E' Red: 9.7 cm/sec Med Peak E' Red: 8.1 cm/sec MV A max red: 94.4 cm/sec E/E' lat: 6.0 E/E' med: 7.1 MV E/A: 0.61 Ao V2 max: 153.0 cm/sec LV V1 max: 116.8 cm/sec PA V2 max: 100.6 cm/sec Ao max P.4 mmHg LV V1 max P.5 mmHg TR max red: 306.2 cm/sec TR max P.5 mmHg ECHO/Echo Complete Interpretation Summary Mild concentric left ventricular hypertrophy. The left ventricular ejection fraction is 60 %. Stage 1 diastolic dysfunction. The left atrium is moderately enlarged. Mildly thickened anterior mitral valve leaflet with redundant cord. Moderate mi tral valve regurgitation with eccentric jet. May be underestimated. Consider cardiac MRI o r KERVIN for further evaluation if clinically indicated. Right ventricular systolic pressure estimated to be 52 mmHg. Ordering Physician: Sarina Allen Referring Physician: ORLANDO CORTEZ Performed By: Selene Fisher RDCS
== END | disposition home or self-care (01) ==
LOC: CVS 13:58
PROVIDERS: PCP Family Medicine; Referring Provider Internal Medicine Cardiovascular Disease; Visit Provider Internal Medicine Cardiovascular Disease
DX: R06.09 Other forms of dyspnea (principal); R01.1 Cardiac murmur, unspecified; R60.0 Localized edema; I34.0 Nonrheumatic mitral (valve) insufficiency; R00.1 Bradycardia, unspecified; Z79.899 Other long term (current) drug therapy
CPT/HCPCS: 93306

== ENCOUNTER 2024-09-09 18:07 | Emergency (ER) | payer MEDICARE, OTHER, SELFPAY ==
[2024-09-09 18:08] VITALS: BP 182/97; PULSE 69; RESP 19; TEMP 36.4; O2SAT 97; BMI 33.9
[2024-09-09 18:37] VITALS: O2SAT 94
[2024-09-09 18:43] VITALS: BP 184/97; PULSE 63; RESP 20; O2SAT 94
--- NOTE | 2024-09-09 19:15 | EKG12_ITS ---
Test Reason : SOB Blood Pressure : */* mmHG Vent. Rate : 71 BPM Atrial Rate : 71 BPM P-R Int : 170 ms QRS Dur : 118 ms QT Int : 436 ms P-R-T Axes : 54 10 18 degrees QTcB Int : 473 ms Sinus rhythm with occasional Premature ventricular complexes Incomplete right bundle branch block Borderline ECG Confirmed by ADITI BEATTY, VIRGILIO ([id number]), newspaper managing editor MAYI TIPTON ([id number]) on 09/14/2024 11:01:20 AM Referred By: Confirmed By: VIRGILIO PENNINGTON MD
--- NOTE | 2024-09-09 19:16 | EDS_ITS ---
HPI History of Present Illness Chief Complaint: Shortness of Breath Narrative Narrative: 79-year-old male past medical history of asthma, on Lasix as well presents with shortness of breath and dyspnea on exertion that he has had for the last 3 weeks. He denies any chest pain associated with this. He has occasional cough that is rarely productive of sputum. No fevers or chills. No nausea or vomiting. While he has bilateral pedal edema, it is not any worse than his baseline. He states he would only have to use an inhaler every so often perhaps once a month but has had to use it more frequently. [facility] Medical History Coronary artery disease Diaphragmatic paralysis PETERS (dyspnea on exertion) Edema Essential hypertension Osteoma of skull Hyperlipidemia Hypertension Atherosclerotic heart disease of [place] coronary artery without angina pectoris Long-term use of high-risk medication Sinus bradycardia Asthma Home Medications ?Medication ?Instructions ?Recorded ?Last Taken ?Type tamsulosin 0.4 mg capsule 0.4 mg PO DAILY URINE 11/18/17 History albuterol sulfate 90 mcg/actuation 2 puff inhalation Q 6H PRN Wheezing 11/04/17 Unknown History aerosol inhaler finasteride 5 mg tablet 5 mg PO QDAY PROSTATE 11/18/17 History fluticasone propionate 50 2 spray intranasal QDAY AHMET RGIES 11/04/17 11/19/17 History mcg/actuation nasal 0730 spray,suspension (Allergy Relief (fluticasone)) multivitamin 1 tab PO QAM SUPPLEMENT 05/01/1511/18/17 History albuterol sulfate 2.5 mg/3 mL 2.5 mg inhalation Q6HWA. RT WHEEZING 11/13/17 11/18/17 History (0.083 %) solution for nebulization nitroglycerin 0.4 mg sublingual 0.4 mg sublingual Q5-1 5M PRN CHEST 06/17/20 Unknown Rx tablet PAIN #75 tabs atenolol 25 mg tablet See Rx Instructions .Route 0 09/30/23 Unknown Rx .COMPLEX #180 tabs lisinopril 20 mg tablet 20 mg PO BID BP #180 tabs Unknown Rx omeprazole 40 mg capsule,delayed 40 mg PO DAILY #90 ca ps 12/30/23 Unknown Rx release atorvastatin 40 mg tablet 40 mg PO QHS for cholesterol #90 02/17/24 Unknown Rx TABLETS potassium chloride 10 mEq See Rx Instructions .Route 0 03/23/24 Unknown Rx tablet,extended .COMPLEX #180 tabs release(part/cryst) (Klor-Con M) clopidogrel 75 mg tablet 75 mg PO DAILY #90 TABLETS 1 08/06/23 Unknown Rx furosemide 40 mg tablet 40 mg PO QDAY WATER PILL #90 tabs 07/23/24 Unknown Rx fluticasone 250 mcg-salmeterol 50 1 ea inhalation BID 09/09/24 Unknown History mcg/dose blistr powdr for inhalation ipratropium 20 mcg-albuterol 100 1 puff inhalation Q4H PRN 09/09/24 Unknown Rx mcg/actuation mist for inhalation shortness of breath or wheezing #4 grams prednisone 20 mg tablet 40 mg (2 x 20 mg) PO DAILY 5 days 09/09/24 Unknown Rx #10 tabs Allergy/AdvReac Type Severity Reaction Status Date / Time nifedipine AdvReac Severe SOB,Dizzine Verified 09/09/24 18:12 ss,CP diazepam (From Valium) AdvReac Nausea Verified 09/09/24 18:12 Family History Father CHF (congestive heart failure) Brother CAD (coronary artery disease) Hx of CABG Surgical History Hx of bilateral cataract extraction (~05/2023) History of back surgery (~01/2023) 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 Presence of stent in coronary artery (~09/2006) Postsurgical percutaneous transluminal coronary angioplasty (PTCA) status Social History Smoking Status: Former smoker alcohol intake: current details: occasional substance use type: does not use caffeine: Yes (occasionally) Type: carbonated beverages and coffee ROS ROS ED ROS Narrative Constitutional: No fever, no chills. HEENT: No sore throat. No neck pain. No rhinorrhea. Cardiovascular: No chest pain. No palpitations. Chronic bilateral pedal edema. Respiratory: Occasional cough, positive dyspnea on exertion and shortness of breath. Abdominal: No abdominal pain. No nausea. No vomiting. Genitourinary: No dysuria. No hematuria. Musculoskeletal: No myalgias. No arthralgias. Neurologic: No headaches. No dizziness. No lightheadedness. Skin: No rash. No change in color. EXAM Physical Exam Narrative Exam Narrative: Afebrile. Vital signs noted. Nontoxic-appearing. HEENT: Normocephalic. Atraumatic. PERRL, EOMI. Neck soft and supple. No point tenderness or step off. Cardiovascular: Regular rate and rhythm. No murmurs, rubs, or gallops appreciated. Respiratory: Mild tachypnea. Lungs clear to auscultation bilaterally. However, slightly prolonged expiratory phase bilaterally. Gastrointestinal: Abdomen soft, nontender, with normoactive bowel sounds. No rebound or guarding. Neurological: Awake. Alert. Nonfocal, nonlateralizing. Able to ambulate in the ED without difficulty. Skin: No rash. Normal color. No pallor. Musculoskeletal: No appreciable pedal edema. Full range of motion extremities. Const Vital Signs: 09/09/24 18:08 09/09/24 18:37 09/09/24 18:43 Temperature 97.6 F L Temperature Source Temporal Pulse Rate 69 63 Respiratory Rate 19 H 20 H Respiratory Effort Short of Breath Labored Respiratory Pattern Blood Pressure 182/97 H 184/97 H Blood Pressure Mean 125 126 Pulse Ox 97 94 Oxygen Delivery Method Room Air Room Air Room Air 09/09/24 19:28 09/09/24 19:38 09/09/24 19:39 Temperature Temperature Source Pulse Rate 66 Respiratory Rate 18 Respiratory Effort Short of Breath Respiratory Pattern Normal Blood Pressure Blood Pressure Mean Pulse Ox Oxygen Delivery Method Room Air 09/09/24 20:07 Temperature Temperature Source Pulse Rate 63 Respiratory Rate 16 Respiratory Effort Respiratory Pattern Blood Pressure 175/85 H Blood Pressure Mean 115 Pulse Ox 98 Oxygen Delivery Method Room Air MDM MDM MDM Narrative Medical decision making narrative: Differential diagnosis includes but not limited to pneumonia versus pneumothorax versus anemia versus CHF versus COPD versus asthma versus pulmonary embolism. I have very low suspicion for pulmonary embolism because is not tachycardic, nor is he hypoxic. His pedal edema is not worse as well. No feel deep dimer is indicated. Given his prolonged expiratory phase he will be given a DuoNeb aerosolized treatment. He also relates history that he had shingles and has paralysis of his right diaphragm so he states that his right lung is compromised. Patient was removed from the mcguire chair and placed into the room with the cot. EKG obtained and interpreted by myself independently as normal sinus rhythm with PVCs at [address] changes. No STEMI. I reviewed his laboratory work and he has normal white count of 7.1 with hemoglobin normal at 15.1, hem atocrit 43.4, platelet count normal at 189. Sodium normal at 140 with potassium 3.7, chloride 101, BUN of 19 and creatinine 1.07. Glucose elevated at 101 but normal anion gap of 15. proBNP 315. I do not think he has heart failure and is on Lasix already. Chest x-ray interpreted by myself independently shows no evidence of pneumonia or pneumothorax. I reviewed the radiology report which confirms my independent interpretation. Upon repeat examination, he is moving a better amount of air and feels improved. I wrote him a prescription for prednisone burst for 5 days and wrote him for a Doug MDI. He has been using albuterol. At this point in time, I do not feel he requires admission. I feel he can be discharged to follow-up with his primary care provider. Return instructions to the emergency department were reviewed. Disposition is discharged home in stable condition. History & Record Review Discussion w/independent historian: Patient Additional record(s) reviewed:: Prior ED visit Lab Data Attestation: I reviewed the patient's lab results. Labs: Laboratory Results - last 24 hr 09/09/24 19:23 WBC 7.1 RBC 5.07 Hgb 15.1 Hct 43.4 MCV 85.6 MCH 29.8 MCHC 34.8 RDW Std Deviation 41.4 RDW Coeff of [place] 13.5 Plt Count 189 MPV 9.8 Immature Gran % (Auto) 0.300 Neut % (Auto) 63.6 Lymph % (Auto) 17.1 L [place] % (Auto) 8.5 Eos % (Auto) 9.8 H Baso % (Auto) 0.7 Absolute Neuts (auto) 4.5 Absolute Lymphs (auto) 1.21 Nucleated RBC % 0 Sodium 140 Potassium 3.7 Chloride 101 Carbon Dioxide 23.8 Anion Gap 15 BUN 19 Creatinine 1.07 Estim Creat Clear Calc 71.59 Est GFR (MDRD) Non-Af 70 BUN/Creatinine Ratio 17.6 Glucose 101 H Calcium 10.0 NT pro BNP II 315 Radiography Chest X-Ray - ED: Read by ED Physician and Read by Radiologist Diagnostic Testing: Clinical Impression(s) from Imaging Studies Chest X-Ray 09/09/24 19:50 IMPRESSION: No acute airspace abnormality. Reading [facility] Discharge Plan Triage Chief Complaint: Shortness of Breath ED Provider: Avni Pinedo Dx/Rx/DC Orders Clinical Impression: Asthma, PETERS (dyspnea on exertion) Instructions: ED Asthma, Acute (Adult), ED Dyspnea Prescriptions: New ipratropium-albuterol 20-100 mcg/actuation mist 1 puff inhalation Q4H PRN (Reason: shortness of breath or wheezing) Qty: 4 0RF prednisone 20 mg tablet 40 mg PO DAILY 5 Days Qty: 10 0RF No Action albuterol sulfate 90 mcg/actuation HFA aerosol inhaler 2 puff INHALATION Q6H PRN (Reason: Wheezing) finasteride 5 mg tablet 5 mg PO QDAY multivitamin tablet 1 tab PO QAM fluticasone propionate [Allergy Relief (fluticasone)] 50 mcg/actuation spray,suspension 2 spray INTRANASAL QDAY furosemide 40 mg tablet 40 mg PO QDAY Qty: 90 3RF tamsulosin 0.4 MG capsule 0.4 mg PO DAILY albuterol sulfate 2.5 MG/3 ML solution for nebulization 2.5 mg inhalation Q6HWA.RT fluticasone propion-salmeterol 250-50 mcg/dose blister with device 1 ea INHALATION BID nitroglycerin 0.4 mg tablet, sublingual 0.4 mg SUBLINGUAL Q5-15M PRN (Reason: CHEST PAIN) Qty: 75 3RF atenolol 25 mg tablet See Rx Instructions .ROUTE .COMPLEX Qty: 180 3RF Dose Instruction: TAKE 1 TABLET BY MOUTH TWO TIMES A DAY Rx Instructions: TAKE 1 TABLET BY MOUTH TWO TIMES A DAY omeprazole 40 mg capsule,delayed release(DR/EC) 40 mg PO DAILY Qty: 90 3RF lisinopril 20 mg tablet 20 mg PO BID Qty: 180 3RF atorvastatin 40 mg tablet 40 mg PO QHS Qty: 90 3RF potassium chloride [Klor-Con M10] 10 mEq tablet,ER particles/crystals See Rx Instructions .ROUTE .COMPLEX Qty: 180 3RF Dose Instruction: TAKE 2 TABLETS BY MOUTH EVERY DAY Rx Instructions: TAKE 2 TABLETS BY MOUTH EVERY DAY clopidogrel 75 mg tablet 75 mg PO DAILY Qty: 90 3RF Primary Care Provider: Carolina Mendez Referrals: Carolina Mendez MD [Primary Care Provider] - 3-5 Days if not improving Activity Restrictions/Additional Instructions: Take the steroid burst for the next 5 days. Use the new inhaler that contains ipratropium and albuterol every 4 hours 1 puff inhaled. Return to the emergency department with increased difficulty breathing, new or worsening symptoms. Print Language: Algerian Disposition Disposition: Home, Self Care
[2024-09-09] MEDS: Ipratropium/Albuterol Sulfate 3 ML AMPUL.NEB INHALATION (19:26)
[2024-09-09 19:28] VITALS: PULSE 66; RESP 18
[2024-09-09 19:31] LABS: Absolute Lymphocyte Count 1.21 X10^3/uL (0.83-4.51); Absolute Neutrophil Count 4.5 X10^3/uL (2.0-7.7); Basophil# 0.05 X10^3/uL; Basophil% 0.7 % (0-1); Eosinophil# 0.69 X10^3/uL; Eosinophils% 9.8 % (0-5); Hematocrit 43.4 % (40-54); Hemoglobin 15.1 g/dL (13.0-16.5); Lymphocyte # 1.21 X10^3/ul (0.83-4.51); Lymphocyte % 17.1 % (19-41); Mean Corp Hgb Conc 34.8 g/dL (32-36); Mean Corpuscular Hgb 29.8 pg (27.0-32.0); Mean Corpuscular Volume 85.6 fL (80-94); Mean Platelet Vol. 9.8 fl (6.2-12.0); Monocyte% 8.5 % (0-10); NRBC Flagged by Analyzer 0 % (0-5); Neutrophil # 4.49 X10^3/uL (2.7-7.7); Neutrophil % 63.6 % (47-70); Platelet Count 189 K/mm3 (150-450); RBC Distribution Width CV 13.5 % (11.6-14.6); RBC Distribution Width SD 41.4 fl (35.1-43.9); Red Blood Count 5.07 M/mm3 (4.6-6.2); White Blood Count 7.1 K/mm3 (4.4-11.0)
--- NOTE | 2024-09-09 19:50 | RAD_ITS ---
PROCEDURE: CHEST PA AND LATERAL REASON FOR EXAM: SHORTNESS OF BREATH TECHNIQUE: Frontal and lateral views of the chest. COMPARISON: None. FINDINGS: Cardiomediastinal silhouette is within normal limits. Lungs are clear. No sizable pneumothorax. Elevated right hemidiaphragm. RAD/Chest PA and Lateral IMPRESSION: No acute airspace abnormality. Reading Location: [facility]
[2024-09-09 19:58] LABS: Pro- Brain NATRIURETIC PEPTIDE 315 pg/mL (<=1800)
[2024-09-09 20:07] VITALS: BP 175/85; PULSE 63; RESP 16; O2SAT 98
[2024-09-09 20:12] LABS: Anion Gap 15 (5-15); BUN 19 mg/dL (4-19); BUN/Creat Ratio 17.6 RATIO (10-20); Carbon Dioxide 23.8 mmol/L (21.0-32.0); Chloride 101 mmol/L (98-108); Creatinine, Serum 1.07 mg/dL (0.70-1.20); EST Glomerular Filtration Rate 70 (>60); Estimated Creatinine Clearance 71.59 ml/min (50-250); Glucose 101 mg/dL (70-99); Potassium 3.7 mmol/L (3.3-5.1); Sodium Level 140 mmol/L (133-145)
[2024-09-09 20:47] VITALS: PULSE 60; RESP 18; O2SAT 96
[2024-09-09] MEDS: predniSONE 20 MG Tablet 60 MG PO (20:58)
== END 2024-09-09 21:29 | disposition home or self-care (01) ==
PROVIDERS: Emergency Provider Emergency Medicine; PCP Family Medicine; Visit Provider Emergency Medicine
DX: R06.00 Dyspnea, unspecified (principal); I25.10 Atherosclerotic heart disease of native coronary artery without angina pectoris; Z87.891 Personal history of nicotine dependence; J45.909 Unspecified asthma, uncomplicated; I10 Essential (primary) hypertension; E78.5 Hyperlipidemia, unspecified; Z79.899 Other long term (current) drug therapy; Z79.51 Long term (current) use of inhaled steroids; Z98.41 Cataract extraction status, right eye; Z98.42 Cataract extraction status, left eye; Z95.5 Presence of coronary angioplasty implant and graft; Z95.0 Presence of cardiac pacemaker
CPT/HCPCS: 71046; 80048; 83880; 85025; 93005; 94640; 99285; A4216

== ENCOUNTER → 2024-09-21 | Outpatient (CLI) | payer MEDICARE, OTHER, SELFPAY ==
--- NOTE | 2024-09-21 10:04 | ECHOTEE_ITS ---
Reason For Study Reason For Study: Murmur Medication KERVIN probe 6VT-D (SN [id number]) passed with minimal difficulty. No complications were noted. Cetacaine Topical [place] given X3 orally. Versed 2 mg given slow IVP. Fentanyl 50 mcg given slow IVP. Performed a rapid injection of agitated mix of 9 cc saline and 1cc air to assess for atrial septal defect. Left Ventricle Normal LV size. Left ventricular systolic function is normal. The left ventricular ejection fraction is 60 %. No regional wall motion abnormalities noted. Right Ventricle Normal RV size. Normal systolic function. Atria Bubble contrast study negative for right to left interatrial shunt. Normal left atrium. No thrombus is detected in the left atrial appendage. Normal right atrium. Mitral Valve Normal mitral valve. Redundant cords noted. Mild-Moderate (1-2+) eccentric mitral valve insufficiency. Tricuspid Valve Normal tricuspid valve. Mild tricuspid valve insufficiency. Aortic Valve Normal aortic valve. Trisinus/trileaflet aortic valve. Pulmonic Valve Normal pulmonic valve. Mild (1+) pulmonic valve insufficiency. Vessels Normal aortic root. Moderate atherosclerosis of the aortic arch. The pulmonary artery is normal size. Pulmonary venous flow normal. Pericardium No pericardial effusion. ECHO/Echo Transesophageal (KERVIN) Interpretation Summary Bubble contrast study negative for right to left interatrial shunt. Normal LV size. Left ventricular systolic function is normal. The left ventricular ejection fraction is 60 %. Redundant cords noted Mild-Moderate (1-2+) eccentric mitral valve insufficiency. Ordering Physician: Clarissa Magallon Referring Physician: Carolina Mendez M.D. Performed By: Zacarias Ospina RCS
== END | disposition home or self-care (01) ==
LOC: CVS 10:01
PROVIDERS: PCP Family Medicine; Referring Provider Physician Assistant Medical; Visit Provider Physician Assistant Medical
DX: I34.0 Nonrheumatic mitral (valve) insufficiency (principal)
CPT/HCPCS: 93312; 93320; 93325; A4216

== ENCOUNTER → 2024-10-22 | Outpatient (CLI) | payer MEDICARE, OTHER, SELFPAY ==
[2024-10-22 18:25] LABS: Anion Gap 12 (5-15); BUN 24 mg/dL (4-19); Calcium,Total 9.7 mg/dL (7.6-11.0); Carbon Dioxide 23.4 mmol/L (21.0-32.0); Chloride 106 mmol/L (98-108); Creatinine, Serum 0.95 mg/dL (0.70-1.20); EST Glomerular Filtration Rate 81 (>60); Glucose 114 mg/dL (70-99); Potassium 3.8 mmol/L (3.3-5.1); Sodium Level 142 mmol/L (133-145)
== END | disposition home or self-care (01) ==
LOC: MTLAB 14:46
PROVIDERS: PCP Family Medicine; Referring Provider Nurse Practitioner Gerontology; Visit Provider Nurse Practitioner Gerontology
DX: I10 Essential (primary) hypertension (principal)
CPT/HCPCS: 36415; 80048

== ENCOUNTER → 2024-11-04 | Outpatient (CLI) | payer MEDICARE, OTHER, SELFPAY ==
--- NOTE | 2024-11-04 15:55 | RAD_ITS ---
PROCEDURE: KNEE 4 OR MORE VIEWS 11/04/2024 REASON FOR EXAM: R KNEE PAIN TECHNIQUE: 4 view(s) of the right knee COMPARISON: None. FINDINGS: Advanced tricompartmental joint space narrowing is seen with near omub-or-wada contact within the medial compartment. There is extensive discogenic calcification involving the medial and lateral meniscus. No fracture or dislocation is seen. No suprapatellar joint effusion is present. RAD/Knee 4 or More Views IMPRESSION: Advanced right knee DJD with near dvmb-wa-drst contact within the medial compar tment. Reading Location: [facility]
--- NOTE | 2024-11-04 15:55 | RAD_ITS ---
PROCEDURE: L/S SPINE W BEND MIN 6 VW 11/04/2024 REASON FOR EXAM: PAIN IN R LEG. TECHNIQUE: 7 views; AP, bilateral oblique, lateral, coned-down L5-S1 view, flexion-extension COMPARISON: None available FINDINGS: 5 [id number] lumbar vertebral body types. S shaped thoracolumbar scoliosis with multilevel spondylosis/discogenic change. No definite fracture identified. No evidence of spondylolysis identified although the oblique images are fairly limited. Status post apparent L3 and L4 laminectomies. L1-2 moderate disc space narrowing L2-3 [id number] disc space narrowing with degenerative endplate changes L3-4 mild disc space narrowing L4-5 [id number] disc space narrowing with degenerative endplate changes. Mild anterolisthesis L4 on L5 without evidence of instability. Prostate radiation seeds. Aortoiliac atherosclerotic calcification. RAD/L/S Spine w Bend Min 6 Vw IMPRESSION: S shaped thoracolumbar scoliosis with multilevel spondylosis/discogenic change. Status post apparent L3 and L4 laminectomies. Reading Location: [id number]
== END | disposition home or self-care (01) ==
LOC: MTRAD 15:51
PROVIDERS: PCP Family Medicine; Referring Provider Family Medicine; Visit Provider Family Medicine
DX: M48.061 Spinal stenosis, lumbar region without neurogenic claudication (principal); M79.604 Pain in right leg
CPT/HCPCS: 72114; 73564

== ENCOUNTER → 2024-11-17 | Outpatient (CLI) | payer MEDICARE, OTHER, SELFPAY ==
[2024-11-17 16:13] LABS: PSA,Total- Diagnostic 1.43 ng/mL (0.00-4.00)
== END | disposition home or self-care (01) ==
LOC: MTLAB 11:07
PROVIDERS: PCP Family Medicine; Referring Provider Urology; Visit Provider Urology
DX: R97.20 Elevated prostate specific antigen [PSA] (principal)
CPT/HCPCS: 36415; 84153